=== PATIENT | male | born 1950 | race African-American/Black ===

== ENCOUNTER 2018-03-22 19:30 | Outpatient (CLI) | payer MEDICARE | END 2018-03-22 19:31 | disposition home or self-care (01) | LOC: SLEEPLAB 19:30 | PROVIDERS: ATTEND Internal Medicine | DX: G47.33 Obstructive sleep apnea (adult) (pediatric) (principal) | CPT/HCPCS: 95811 ==

== ENCOUNTER 2018-10-06 09:57 | Outpatient (CLI) | payer MEDICARE ==
--- NOTE | 2018-10-06 11:38 | RAD ---
LUMBAR SPINE SERIES 3 VIEWS: Date: 10/06/18 HISTORY: Low back pain. FINDINGS: Vertebral bodies are normal in height. Degenerative osteophytes are seen along the course of the spin e. There is mild disc narrowing at L4-5, more pronounced disc narrowing at L5-S1. Pedicles are intact . IMPRESSION: Moderate arthritic changes of the lower lumbar spine. POS: [facility]
--- NOTE | 2018-10-06 11:41 | RAD ---
LEFT KNEE 4 VIEWS: Date: 10/06/18 HISTORY: Knee pain. FINDINGS: There are mild arthritic changes of the knee. There is degenerative spur formation in the mediolatera l and patellofemoral compartments. No acute changes. IMPRESSION: Mild arthritic changes of the knee. POS: [facility]
--- NOTE | 2018-10-06 11:45 | RAD ---
RIGHT KNEE 4 VIEWS: Date: 10/06/18 HISTORY: Knee pain. FINDINGS: There are mild to moderate arthritic changes of the knee. Spur formation of the medial and lateral co mpartments, and some mild degenerative changes of the patellofemoral joint space. No joint effusion. Vascular calcifications are seen. IMPRESSION: Mild to moderate arthritic change of the right knee. POS: [facility]
== END 2018-10-06 09:58 | disposition home or self-care (01) ==
LOC: RAD-FRANK 09:57
PROVIDERS: ATTEND Internal Medicine
DX: M17.0 Bilateral primary osteoarthritis of knee (principal); M54.5 Low back pain; G89.29 Other chronic pain; M46.96 Unspecified inflammatory spondylopathy, lumbar region
CPT/HCPCS: 72100

== ENCOUNTER 2018-11-09 10:23 | Outpatient (CLI) | payer MEDICARE ==
--- NOTE | 2018-11-09 10:34 | RAD ---
XR Wrist 3 Rt View STANDARD HISTORY: Right wrist pain FINDINGS: No fracture or dislocation is identified. Vascular calcifications are present.
--- NOTE | 2018-11-09 10:35 | RAD ---
XR Wrist 3 Lt View STANDARD HISTORY: Left wrist pain FINDINGS: No fracture or dislocation is identified.Vascular calcifications are present.
== END 2018-11-09 10:24 | disposition home or self-care (01) ==
LOC: RAD-FRANK 10:23
PROVIDERS: ATTEND Internal Medicine
DX: S69.90XA Unspecified injury of unspecified wrist, hand and finger(s), initial encounter (principal)

== ENCOUNTER 2018-12-30 13:45 | Outpatient (CLI) | payer MEDICARE ==
--- NOTE | 2018-12-30 15:36 | RAD ---
LEFT WRIST: 12/30/18 Three views. INDICATIONS: Wrist pain. Comparison made to a recent left wrist exam of 11/09/18. Mild narrowing of the radiocarpal joint. Mild DJD at the first carpometacarpal joint. The carpals joseph ear normally aligned. No fracture or acute abnormality. No interval change from the recent exam. Rosina rial calcification noted. IMPRESSION: There are mild degenerative changes noted in the carpals. No fracture or acute finding. No interval c hange from recent exam. POS: [facility]
== END 2018-12-30 13:46 | disposition home or self-care (01) ==
LOC: RAD-FRANK 13:45
PROVIDERS: ATTEND Internal Medicine
DX: M25.532 Pain in left wrist (principal); M18.12 Unilateral primary osteoarthritis of first carpometacarpal joint, left hand

== ENCOUNTER 2019-05-19 08:53 | Outpatient (CLI) | payer MEDICARE ==
--- NOTE | 2019-05-19 11:11 | RAD ---
RIGHT KNEE 4 VIEWS: HISTORY: Right knee pain. FINDINGS/IMPRESSION: Moderate degenerative changes are present. No fracture, dislocation, or bony destruction is identifi ed. No joint effusion is present. POS: [facility]
--- NOTE | 2019-05-19 11:11 | RAD ---
LEFT KNEE 4 VIEWS: Date: 05/19/2019 HISTORY: Left knee pain. FINDINGS/IMPRESSION: Comparison made with exam of 10/06/2018. Mild degenerative changes are again seen. No acute fracture, dislocation, or bony destruction is iden tified. POS: [facility]
--- NOTE | 2019-05-19 11:12 | RAD ---
LUMBAR SPINE 2 VIEWS: Date: 05/19/2019 HISTORY: Low back pain going down both legs, worse on the left. FINDINGS: Comparison with 10/06/2018. No fracture, subluxation, or bony destruction seen. Moderate degenerative changes are again noted. IMPRESSION: Stable exam. No acute process. POS: [facility]
== END 2019-05-19 08:54 | disposition home or self-care (01) ==
LOC: BICRAD 08:53
PROVIDERS: ATTEND Internal Medicine
DX: M25.561 Pain in right knee (principal); M25.562 Pain in left knee; M54.5 Low back pain; M17.0 Bilateral primary osteoarthritis of knee
CPT/HCPCS: 72100

== ENCOUNTER 2019-12-05 08:50 | Outpatient (CLI) | payer MEDICARE ==
--- NOTE | 2019-12-05 09:38 | RAD ---
EXAM: Chest 2 views: HISTORY: Shortness of breath COMPARISON: None. FINDINGS: There is a normal-sized cardiomediastinal silhouette. Scarring is seen in the left lung base. There is no evidence of consolidation, mass, or pleural effusion. No acute osseous abnormality. IMPRESSION: No evidence of acute cardiopulmonary disease
== END 2019-12-05 08:51 | disposition home or self-care (01) ==
LOC: RAD-FRANK 08:50
PROVIDERS: ATTEND Internal Medicine Cardiovascular Disease
DX: R06.02 Shortness of breath (principal)
CPT/HCPCS: 71046; 80053; 80061; 83880; 84443; 85025

== ENCOUNTER 2020-01-10 09:37 | Outpatient (CLI) | payer MEDICARE ==
--- NOTE | 2020-01-10 10:20 | RAD ---
XR Chest Pa Lat STANDARD HISTORY: Dyspnea COMPARISON: 12/05/2019 FINDINGS: The heart size is normal. The aorta is tortuous. The lungs are well expanded without focal areas of consolidation, pneumothorax or pleural effusions. This mild interval prominence of interstitial markings since last exam. Mild scarring of the left dora g base is again seen.
== END 2020-01-10 09:38 | disposition home or self-care (01) ==
LOC: BICRAD 09:37
PROVIDERS: ATTEND Internal Medicine Critical Care Medicine
DX: R06.00 Dyspnea, unspecified (principal)
CPT/HCPCS: 71046

== ENCOUNTER 2020-02-23 13:25 | Inpatient (IN) | payer MEDICARE ==
[2020-02-23 14:06] LABS: #Eosinphils 0.1 thou/uL (0.0-0.7); #Lymphocytes 1.3 thou/uL (1.20-3.40); #Monocytes 0.6 thou/uL (0.11-0.59); #Neutrophils 9.3 thou/uL (1.40-6.50); %Basophils 0.3 % (0.0-1.0); %Eosinophils 0.7 % (0.0-10.0); %Lymphocytes 11.7 % (21.0-51.0); %Neutrophils 82.4 % (42.0-75.0); Hemoglobin 10.9 g/dL (14.0-18.0); Mean Corpuscular HGB CONC 30.4 g/dL (32.0-36.0); Mean Corpuscular Hemoglobin 26.4 pg (27.0-31.0); Mean Corpuscular Volume 86.8 fL (78.0-98.0); Mean Platelet Volume 9.7 fL (7.4-10.4); Platelet Count 143 thou/uL (130-400); RBC Distribution Width 13.1 % (11.5-14.5); Red Blood Cell (RBC) Count 4.14 mill/uL (4.70-6.10); White Blood Cell (WBC) Count 11.3 thou/uL (4.8-10.8)
--- NOTE | 2020-02-23 14:14 | RAD ---
PORTABLE CHEST 1 VIEW: Date: 02/23/2020 HISTORY: Shortness of breath. Hypotension. COMPARISON: 01/10/2020. FINDINGS/IMPRESSION: The heart is enlarged. There is mild pulmonary vascular congestion. No lobar consolidation, pneumotho races, or large effusions are seen. POS: [facility]
[2020-02-23 14:30] LABS: ALT (SGPT) 14 U/L (8-55); AST (SGOT) 10 U/L (5-34); Albumin 3.6 g/dL (3.4-4.8); Alkaline Phosphatase 77 U/L (40-110); Anion Gap 15 mmol/L (10-20); BUN (Urea Nitrogen) 18 mg/dL (8.4-25.7); Bilirubin, Total 0.4 mg/dL (0.2-1.2); Calc. Creatinine Clearance 0 mL/min (70-130); Calcium 8.2 mg/dL (7.8-10.44); Carbon Dioxide 22 mmol/L (23-31); Chloride 103 mmol/L (98-107); Globulin 3.5 g/dL (2.4-3.5); Glucose 242 mg/dL (80-115); Potassium 3.8 mmol/L (3.5-5.1); Protein, Total 7.1 g/dL (5.8-8.1); Sodium 136 mmol/L (136-145)
[2020-02-23 15:45] LABS: CKMB 1.2 ng/mL (0-6.6)
--- NOTE | 2020-02-23 17:15 | PDOC.HHP ---
Hospitalist HPI - History of Present Illness SOB History of Present Illness: PCP: [facility] The patient is a 69-year-old male with a past medical history significant for SAURAV (CPAP), HTN, DM 2, HLD and anxiety that presents to the emergency department via EMS for the above complaint. The patient reports that he has been having episodic dyspnea on exertion for the past several days. Today, while walking in the yard, his dyspnea became more severe. When he sat down it resolved. He reports some associated lightheadedness. He denies vertigo. He denies any chest pain, heart palpitations or swelling to his lower extremities. He denies any history of COPD/asthma, DVT/PE or cough. No fever or chills. He denies any abdominal pain, nausea, vomiting, hematochezia/melena. He has no urinary sympto ms. Denies any fever or chills. He tested negative for Covid 3 weeks ago. EMS was called and the patient was taken to the hospital for further evaluation. ED Course: VITAL SIGNS Aarti Feb 23, 2020 13:33 [place] [place] BP: 114/64, MAP: 80, Pulse: 52, Resp: 19, Temp: 98.2 (Oral), Pain: 0, O2 sat: 96 on (Room Air), Time: 02/23/2020 13:33. VITAL SIGNS Aarti Feb 23, 2020 14:59 [place] BP: 115/63, MAP: 80, Pulse: 59, Resp: 18, Pain: 0, O2 sat: 97 on (Room Air), Time: 02/23/2020 14:59 Medications: None Hospitalist ROS - Review of Systems All other systems reviewed; all pertinent +/- noted in HPI/Subj - Medication Medications: 1. Metoprolol unknown dosing 2. Hydralazine unknown dosing 3. Lasix unknown dosing 4. Metformin unknown dosing 5. Glipizide unknown dosing 6. Amitriptyline unknown dosing Allergies: lisinopril (bulk), Shellfish Containing Products, Sulfa (Sulfonamide Antibiotics) Hospitalist History - Past Medical History Source: patient, RN notes reviewed Cardiac: reports: HTN, Hyperlipidemia Pulmonary: reports: Other (Obstructive sleep apnea, CPAP at home) Psych: reports: Anxiety Endocrine: reports: Diabetes (Type II [id number]) - Past Surgical History Past Surgical History: reports: Cholecystectomy, Other (Bilateral knee surgery, neck surgery, herniated disc) - Family History Family History: reports: cardiac disorder (Mother) - Social History Smoking Status: Never smoker Alcohol: reports: None Drugs: reports: none Living Situation: With Family Activity level: uses cane/walker - Exam General Appearance: NAD, awake alert. negative: ill appearing Eye: anicteric sclera ENT: normocephalic atraumatic Neck: supple, symmetric Heart: RRR, no murmur, no gallops, no rubs, normal peripheral pulses Respiratory: CTAB, no wheezes, no rales, no ronchi, normal chest expansion, no tachypnea Gastrointestinal: soft, non-tender, no guarding, no rigidity. negative: non- distended Extremities: no cyanosis, no edema Skin: no rashes Neurological: no focal deficits Musculoskeletal: normal tone, normal strength Psychiatric: normal affect, A&O x 3 Hospitalist Results - Labs Result Diagrams: 02/23/20 13:53 02/23/20 13:53 Lab results: WBC 11.3 thou/uL (4.8-10.8) H 02/23/20 13:53 Hgb 10.9 g/dL (14.0-18.0) L 02/23/20 13:53 Hct 35.9 % (42.0-52.0) L 02/23/20 13:53 MCV 86.8 fL (78.0-98.0) 02/23/20 13:53 Plt Count 143 thou/uL (130-400) 02/23/20 13:53 Neutrophils % 82.4 % (42.0-75.0) H 02/23/20 13:53 Sodium 136 mmol/L (136-145) 02/23/20 13:53 Potassium 3.8 mmol/L (3.5-5.1) 02/23/20 13:53 Chloride 103 mmol/L (98-107) 02/23/20 13:53 Carbon Dioxide 22 mmol/L (23-31) L 02/23/20 13:53 BUN 18 mg/dL (8.4-25.7) 02/23/20 13:53 Creatinine 1.04 mg/dL (0.7-1.3) 02/23/20 13:53 Glucose 242 mg/dL (80-115) H 02/23/20 13:53 Calcium 8.2 mg/dL (7.8-10.44) 02/23/20 13:53 Total Bilirubin 0.4 mg/dL (0.2-1.2) 02/23/20 13:53 AST 10 U/L (5-34) 02/23/20 13:53 ALT 14 U/L (8-55) 02/23/20 13:53 Alkaline Phosphatase 77 U/L (40-110) 02/23/20 13:53 CK-MB (CK-2) 1.2 ng/mL (0-6.6) 02/23/20 13:53 Troponin I 0.034 ng/mL (< 0.028) H 02/23/20 13:53 Serum Total Protein 7.1 g/dL (5.8-8.1) 02/23/20 13:53 Albumin 3.6 g/dL (3.4-4.8) 02/23/20 13:53 - EKG Interpretation EK lead EKG shows, sinus bradycardia, Rate (beats per minute): 50, with no ectopics, Conduction with, incomplete right bundle branch block, ST segments normal, T waves normal, [place] normal, Clinical impression:, non-specific EKG - Radiology Interpretation Chest x-ray Status: report reviewed by me Additional Comment: FINDINGS/IMPRESSION: The heart is enlarged. There is mild pulmonary vascular congestion. No lobar consolidation, pneumotho races, or large effusions are seen. Hospitalist H&P A/P - Problem (1) Symptomatic bradycardia Code(s): R00.1 - BRADYCARDIA, UNSPECIFIED Status: Acute (2) Dyspnea on exertion Code(s): R06.00 - DYSPNEA, UNSPECIFIED Status: Acute (3) Hypertension Code(s): I10 - ESSENTIAL (PRIMARY) HYPERTENSION Status: Chronic (4) DM2 (diabetes mellitus, type 2) Status: Chronic (5) HLD (hyperlipidemia) Code(s): E78.5 - HYPERLIPIDEMIA, UNSPECIFIED Status: Chronic (6) Anxiety Code(s): F41.9 - ANXIETY DISORDER, UNSPECIFIED Status: Chronic - Plan Plan: 69/M with PMH HTN, HLD, DM2, SAURAV presents for dyspnea on exertion. Admit to telemetry floor, observation status. Expected length of stay less than 2 midnights. Presented bradycardic (HR 52), NL BP, RR, SPO2, afebrile. EKG sinus bradycardia incomplete right bundle branch block, no ST elevations. CXR enlarged heart, mild pulmonary congestion. Troponin 0.034, CK-MB 1.2 BG 242 #Symptomatic bradycardia Story is concerning. Reports recent [employer]/echo followed by Dr. Obrien. Unable to locate in [place]. Upon assessment, HR 70s. Heart score 6. [place] PE score 0. Trend troponins, check BNP, TSH, mag level. Give aspirin. Check orthostatic vitals. Consult cardiology, Dr. Obrien. #Dyspnea on exertion Likely related to problem #1. Plan per above. #Hypertension Takes metoprolol, hydralazine, Lasix at home. We will restart home medications as appropriate. #DM2 [id number]. Takes Metformin and glipizide at home. We will hold home antihyperglycemic medications. Start moderate ISS. Accu-Cheks AC at bedtime. #HLD Check FLP. Restart home dose simvastatin. #Anxiety Denies SI/HI. Takes amitriptyline at night. We will restart home dose of amitriptyline. SCDs for DVT prophylaxis. Pepcid for GI prophylaxis. Full code. Discussed case with Dr. Stoddard.
[2020-02-23] MEDS ORDERED: HumaLOG 300 UNITS/3 ML VIAL SC PRN (17:43)
[2020-02-23] MEDS ORDERED: Dextrose 5% in Water 1,000 ML IV PRN (17:43)
[2020-02-23] MEDS ORDERED: Dextrose 50% Abboject 50 ML SYRINGE SLOW IVP PRN (17:43)
[2020-02-23] MEDS ORDERED: Ondansetron ODT 4 MG TAB PO PRN (17:44)
[2020-02-23] MEDS ORDERED: Ondansetron PF 4 MG/2 ML Vial IVP PRN (17:44)
[2020-02-23] MEDS ORDERED: Acetaminophen 325 MG TAB PO PRN (17:44)
[2020-02-23] MEDS ORDERED: Bisacodyl 5 MG TAB PO PRN (17:44)
[2020-02-23] MEDS ORDERED: Senokot S 8.6-50 MG TAB PO PRN (17:44)
[2020-02-23 17:50] LABS: Troponin I 0.028 ng/mL (< 0.028)
[2020-02-23] MEDS ORDERED: Aspirin 325 MG TAB PO SCH (18:00)
[2020-02-23 18:38] VITALS: BMI 38.7
[2020-02-23 20:18] LABS: Troponin I 0.043 ng/mL (< 0.028)
[2020-02-23] MEDS: Famotidine 20 MG TAB PO SCH (21:04)
[2020-02-24 04:28] LABS: #Basophils 0.1 thou/uL (0.0-0.2); #Eosinphils 0.1 thou/uL (0.0-0.7); #Lymphocytes 2.3 thou/uL (1.20-3.40); #Monocytes 0.7 thou/uL (0.11-0.59); #Neutrophils 5.4 thou/uL (1.40-6.50); %Basophils 0.8 % (0.0-1.0); %Eosinophils 1.2 % (0.0-10.0); %Lymphocytes 26.6 % (21.0-51.0); %Monocytes 8.4 % (0.0-10.0); Hemoglobin 10.5 g/dL (14.0-18.0); Mean Corpuscular HGB CONC 30.6 g/dL (32.0-36.0); Mean Corpuscular Hemoglobin 26.9 pg (27.0-31.0); Mean Platelet Volume 9.4 fL (7.4-10.4); Platelet Count 128 thou/uL (130-400); RBC Distribution Width 13.1 % (11.5-14.5); Red Blood Cell (RBC) Count 3.91 mill/uL (4.70-6.10); White Blood Cell (WBC) Count 8.6 thou/uL (4.8-10.8)
[2020-02-24 04:50] LABS: Anion Gap 12 mmol/L (10-20); BUN (Urea Nitrogen) 15 mg/dL (8.4-25.7); Calc. Creatinine Clearance 171 mL/min (70-130); Calcium 8.4 mg/dL (7.8-10.44); Carbon Dioxide 29 mmol/L (23-31); Cardiac Risk 2.2 (Less than 4.5); Chloride 102 mmol/L (98-107); Cholesterol 97 mg/dl (< 200 Desired); HDL Cholesterol 45 mg/dL (>60 Neg Risk); LDL Cholesterol, Calculated 38 mg/dL; Potassium 3.5 mmol/L (3.5-5.1); Sodium 139 mmol/L (136-145); Triglycerides 68 mg/dL (Less than 150)
[2020-02-24 04:58] LABS: Glucose 54 mg/dL (80-115)
[2020-02-24] MEDS: Famotidine 20 MG TAB PO SCH ×2 (08:41→21:58)
[2020-02-24] MEDS: Aspirin Chewable 81 MG TAB PO SCH (08:41)
[2020-02-24] MEDS ORDERED: Magnesium Sulfate 4 GM in Sodium Chloride 0.9% 250 ML 250 ML IVPB SCH (10:15)
[2020-02-24] MEDS ORDERED: D5 1/2 NS w/20 mEq KCL 1,000 ML IV SCH ×2 (11:30→15:32)
[2020-02-24] MEDS: Potassium Chloride 20 MEQ TAB PO SCH ×2 (12:32→16:47)
[2020-02-24] MEDS ORDERED: hydrALAZINE 25 MG TAB PO SCH (16:15)
--- NOTE | 2020-02-24 16:22 | CON ---
DATE OF CONSULTATION: REASON FOR CONSULTATION: Shortness of breath and bradycardia. PRIMARY LINING IRONER: Jos Obrien MD HISTORY OF PRESENT ILLNESS: Mr. Cullen is a 69-year-old gentleman, who has been seen and evaluated by Dr. Jos Obrien in the past. He has complaint of shortness of breath noted in the past. He has a history of diastolic dysfunction, grade 2. He has undergone a noninvasive stress study within the last several months. It was felt to be negative with normal LVEF. He states over the last 2 to 3 weeks, he has had increased shortness of breath. Blood pressure has been elevated. Heart rate has been low. They found his heart rate to be in the 40s. Recommend he proceed to the emergency room. No chest pain or pressure noted. HOME MEDICATIONS: Include 1. Metformin. 2. Glipizide. 3. Metoprolol 100 mg one p.o. b.i.d. 4. Diltiazem 60 mg t.i.d. 5. Simvastatin 80 daily. 6. Metoclopramide. 7. Amitriptyline. 8. Tramadol. 9. Pantoprazole. 10. Ondansetron. 11. Hydralazine. 12. Lasix. 13. Doxazosin. 14. Finasteride. PAST MEDICAL HISTORY: Hypertension, diabetes mellitus, grade 2 diastolic dysfunction, cholecystectomy, and knee surgery. SOCIAL HISTORY: No current tobacco or alcohol use. ALLERGIES: 1. BACTRIM. 2. IODINE. 3. LISINOPRIL. REVIEW OF SYSTEMS: A 10-point review of systems is reviewed and as above, otherwise negative. PHYSICAL EXAMINATION: GENERAL: Patient is a pleasant gentleman, who is in no acute distress. The patient appears their stated age. VITAL SIGNS: Blood pressure 177/91, pulse 88, temperature 98.7. NEUROLOGIC: The patient is alert and oriented x3 with no focal neurologic deficits. HEENT: Sclerae without icterus. Mouth has moist mucous membranes with normal pallor. NECK: No JVD. Carotid upstroke brisk. No bruits bilaterally. LUNGS: Crackles noted bilaterally. BACK: No scoliosis or kyphosis. CARDIAC: Regular rate and rhythm with normal S1 and S2. No S3 or S4 noted. No significant rubs, murmurs, thrills, or gallops noted throughout the precordium. PMI is not displaced. There is no parasternal heave. ABDOMEN: Soft, nontender, nondistended. No peritoneal signs present. No hepatosplenomegaly. No abnormal striae. EXTREMITIES: 2+ femoral and 2+ dorsalis pedis pulses. No cyanosis, clubbing, or edema. SKIN: No gross abnormalities. PERTINENT LABORATORY DATA: Include a creatinine of 0.79. Initial glucose 54, magnesium 1.5. Platelet count 128, hemoglobin 10.5. BNP of 126. IMPRESSION: 1. Shortness of breath. 2. Bradycardia. 3. Diastolic dysfunction. RECOMMENDATIONS: Mr. Cullen has had a full cardiac workup in the past. He does have a grade 2 diastolic dysfunction. Blood pressure is markedly elevated in the 170s to 180s. At this point, I agree with discontinuing Cardizem in addition to metoprolol. We would like to see his heart rate increased. I will add Norvasc 5 mg one p.o. now and then q.a.m. We will also add hydrochlorothiazide 25 mg one p.o. q.a.m. We will give one dose of Lasix now given the mild crackles noted bilaterally likely from diastolic dysfunction. At this point, there is no indication to proceed with a noninvasive stress study given recent stress study that was negative for ischemia. Job ID: [id number]
[2020-02-24] MEDS ORDERED: Furosemide 40 MG/4 ML VIAL SLOW IVP SCH (16:30)
--- NOTE | 2020-02-24 20:48 | PDOC.HOSPP ---
- Subjective Encounter Date: 02/24/20 Encounter Time: 18:30 Subjective: Patient seen and examined for near syncope probably due to symptomatic bradycardia. Denies any chest pain or shortness of breath. No new focal deficit. - Objective Vital Signs & Weight: Vital Signs (12 hours) Temp Pulse Resp BP BP BP BP 02/24/20 17:45 90 16 163/84 H 154/84 H 167/83 H 02/24/20 16:46 82 02/24/20 15:56 82 177/89 H 02/24/20 15:54 82 173/89 H 02/24/20 15:22 98.7 F 88 16 177/91 H 02/24/20 11:26 98.2 F 88 16 170/87 H Pulse Ox 02/24/20 17:45 98 02/24/20 16:46 02/24/20 15:56 02/24/20 15:54 02/24/20 15:22 98 02/24/20 11:26 98 Weight Weight 302 lb 4 oz I&O: 02/23/20 02/24/20 02/25/20 06:59 06:59 06:59 Intake Total 920 Output Total 3175 Balance -2255 Result Diagrams: 02/24/20 04:10 02/25/20 04:10 Additional Labs: Accuchecks 02/24/20 02/24/20 02/24/20 16:31 10:44 07:37 POC Glucose 93 86 126 H 02/24/20 02/24/20 02/23/20 06:16 05:39 20:42 POC Glucose 72 49 L* 91 Abnormal Lab Results - Last 48 hrs 02/23/20 13:53: WBC 11.3 H, RBC 4.14 L, Hgb 10.9 L, Hct 35.9 L, MCH 26.4 L, MCHC 30.4 L, Neutrophils % 82.4 H, Lymphocytes % 11.7 L, Neutrophils # 9.3 H, Monocytes # 0.6 H 02/23/20 13:53: Carbon Dioxide 22 L, Albumin/Globulin Ratio 1.0 L 02/23/20 13:53: Troponin I 0.034 H 02/23/20 13:53: Magnesium 1.5 L 02/23/20 13:53: B-Natriuretic Peptide 126.6 H 12/17/20 19:33: Troponin I 0.043 H 02/24/20 04:00: Magnesium 1.5 L 02/24/20 04:10: RBC 3.91 L, Hgb 10.5 L, Hct 34.4 L, MCH 26.9 L, MCHC 30.6 L, Plt Count 128 L, Monocytes # 0.7 H Radiology Reviewed by me: Yes (Chest x-rayno infiltrate) EKG Reviewed by me: Yes (Sinus rhythm on telemetry) Hospitalist ROS - Review of Systems Cardiovascular: denies: chest pain, palpitations, orthopnea, paroxysmal noc. dyspnea, edema, light headedness, other Gastrointestinal: denies: nausea, vomiting, abdominal pain, diarrhea, constipation, melena, hematochezia, other - Medication Medications: Active Medications Generic Name Dose Route Start Last Admin Trade Name Freq PRN Reason Stop Dose Admin Aspirin 81 mg 02/24/20 09:00 02/24/20 08:41 Aspirin Chewable 81 Mg Tab PO 81 mg DAILY TERRY Administration Dextrose/Water 25 gm 02/23/20 17:43 02/24/20 06:27 Dextrose 50% Abboject 50 Ml Syringe SLOW IVP 25 gm PRN PRN Administration Hypoglycemia Famotidine 20 mg 02/23/20 21:00 02/24/20 08:41 Famotidine 20 Mg Tab PO 20 mg BID TERRY Administration Potassium Chloride 20 meq 02/24/20 12:00 02/24/20 16:47 Potassium Chloride 20 Meq Tab PO 02/25/20 12:01 20 meq TID-WM TERRY Administration - Exam General Appearance: NAD Neck: supple, no JVD Heart: no gallops, no rubs Respiratory: no wheezes, no rales Gastrointestinal: non-tender, non-distended, normal bowel sounds Extremities: no cyanosis, no clubbing Skin: normal turgor Neurological: no new deficit Hosp A/P - Plan DVT proph w/SCDs Shortness of breath probably due to symptomatic bradycardia Acute on chronic diastolic heart failure Diabetes mellitus type 2 with hypoglycemia Hypomagnesemia/hypokalemia Hypertension Hyperlipidemia GERD Chronic pain syndrome Benign prostatic hypertrophy Obesity with a BMI 38.8 CKD stage II Obstructive sleep apnea on CPAP Plan: Received 1 dose of IV Lasix earlier. Beta-blockers and Cardizem have been discontinued. Orthostatic vitals negative. Patient has been started on amlodipine. Hypoglycemia resolved. Replace magnesium and potassium. Restart doxazosin, hydralazine and finasteride. Cardiology input appreciated. Continue other medications as above. Recheck labs in a.m.
[2020-02-24] MEDS ORDERED: Atorvastatin Calcium 40 MG TAB PO SCH (21:00)
[2020-02-24] MEDS: hydrALAZINE 25 MG TAB PO SCH (21:48)
[2020-02-24] MEDS: Doxazosin Mesylate 4 MG TAB PO SCH (21:49)
[2020-02-25 05:00] LABS: Anion Gap 14 mmol/L (10-20); BUN (Urea Nitrogen) 12 mg/dL (8.4-25.7); Calc. Creatinine Clearance 163 mL/min (70-130); Calcium 8.4 mg/dL (7.8-10.44); Carbon Dioxide 27 mmol/L (23-31); Chloride 101 mmol/L (98-107); Glucose 114 mg/dL (80-115); Magnesium 2.1 mg/dL (1.6-2.6); Potassium 3.8 mmol/L (3.5-5.1); Sodium 138 mmol/L (136-145)
[2020-02-25] MEDS: HumaLOG 300 UNITS/3 ML VIAL SC PRN ×2 (07:50→20:55)
[2020-02-25] MEDS: hydrALAZINE 25 MG TAB PO SCH ×2 (09:33→20:47)
[2020-02-25] MEDS: Potassium Chloride 20 MEQ TAB PO SCH ×2 (09:33→14:02)
[2020-02-25] MEDS: Aspirin Chewable 81 MG TAB PO SCH (09:34)
[2020-02-25] MEDS: Hydrochlorothiazide 25 MG TAB PO SCH (09:34)
[2020-02-25] MEDS: Amlodipine 5 MG TAB PO SCH (09:34)
[2020-02-25] MEDS: Finasteride 5 MG TAB PO SCH (09:34)
[2020-02-25] MEDS ORDERED: Carvedilol 6.25 MG TAB PO SCH (11:45)
[2020-02-25] MEDS ORDERED: Furosemide 20 MG/2 ML VIAL SLOW IVP SCH ×2 (11:45→15:15)
--- NOTE | 2020-02-25 12:02 | PDOC.HOSPP ---
- Subjective Encounter Date: 02/25/20 Encounter Time: 11:00 Subjective: Patient seen and examined for symptomatic bradycardia with shortness of breath. He was less dyspneic on exertion this morning on ambulation. Had mild chest discomfort when he came back to the room after cardiac rehab. Denies any palpitations or syncope. - Objective Vital Signs & Weight: Vital Signs (12 hours) Temp Pulse Resp BP Pulse Ox 02/25/20 07:30 97 02/25/20 07:29 98.3 F 85 18 159/86 H 97 02/25/20 03:18 97.4 F L 77 20 143/74 H 93 L Weight Weight 302 lb 4 oz I&O: 02/24/20 02/25/20 02/26/20 06:59 06:59 06:59 Intake Total 1320 Output Total 4425 Balance -3105 Result Diagrams: 02/24/20 04:10 02/25/20 04:10 Additional Labs: Accuchecks 02/25/20 02/25/20 02/24/20 11:00 05:56 20:42 POC Glucose 135 H 158 H 128 H 02/24/20 16:31 POC Glucose 93 Abnormal Lab Results - Last 48 hrs 02/23/20 13:53: WBC 11.3 H, RBC 4.14 L, Hgb 10.9 L, Hct 35.9 L, MCH 26.4 L, MCHC 30.4 L, Neutrophils % 82.4 H, Lymphocytes % 11.7 L, Neutrophils # 9.3 H, Monocytes # 0.6 H 02/23/20 13:53: Carbon Dioxide 22 L, Albumin/Globulin Ratio 1.0 L 02/23/20 13:53: Troponin I 0.034 H 02/23/20 13:53: Magnesium 1.5 L 02/23/20 13:53: B-Natriuretic Peptide 126.6 H 02/23/20 19:33: Troponin I 0.043 H 02/24/20 04:00: Magnesium 1.5 L 02/24/20 04:10: RBC 3.91 L, Hgb 10.5 L, Hct 34.4 L, MCH 26.9 L, MCHC 30.6 L, Plt Count 128 L, Monocytes # 0.7 H EKG Reviewed by me: Yes (Sinus rhythm on telemetry) Hospitalist ROS - Review of Systems Respiratory: reports: SOB with excertion. denies: cough, dry, shortness of breath, hemoptysis, pleuritic pain, sputum, wheezing, other Gastrointestinal: denies: nausea, vomiting, abdominal pain, diarrhea, constipation, melena, hematochezia, other - Medication Medications: Active Medications Generic Name Dose Route Start Last Admin Trade Name Freq PRN Reason Stop Dose Admin Amlodipine Besylate 5 mg 02/25/20 09:00 02/25/20 09:34 Amlodipine 5 Mg Tab PO 5 mg DAILY TERRY Administration Aspirin 81 mg 02/24/20 09:00 02/25/20 09:34 Aspirin Chewable 81 Mg Tab PO 81 mg DAILY TERRY Administration Dextrose/Water 25 gm 02/23/20 17:43 02/24/20 06:27 Dextrose 50% Abboject 50 Ml Syringe SLOW IVP 25 gm PRN PRN Administration Hypoglycemia Doxazosin Mesylate 8 mg 02/24/20 21:00 02/24/20 21:49 Doxazosin Mesylate 4 Mg Tab PO 8 mg HS TERRY Administration Finasteride 5 mg 02/25/20 09:00 02/25/20 09:34 Finasteride 5 Mg Tab PO 5 mg DAILY TERRY Administration Hydralazine HCl 100 mg 02/24/20 21:00 02/25/20 09:33 Hydralazine 25 Mg Tab PO 100 mg BID TERRY Administration Hydrochlorothiazide 25 mg 02/25/20 09:00 02/25/20 09:34 Hydrochlorothiazide 25 Mg Tab PO 25 mg DAILY TERRY Administration Insulin Human Lispro 0 units 02/24/20 09:06 02/25/20 07:50 Humalog 300 Units/3 Ml Vial SC 2 unit .MILD SLIDING SCALE PRN Administration Mild Correctional Scale Pantoprazole Sodium 40 mg 02/24/20 21:00 02/24/20 21:49 Pantoprazole 40 Mg Tab PO 40 mg HS TERRY Administration - Exam General Appearance: NAD Neck: supple, no JVD Heart: RRR, no gallops Respiratory: no wheezes, no rales Gastrointestinal: soft, non-tender, normal bowel sounds Extremities: no cyanosis, 1+ LE edema Neurological: no new deficit Psychiatric: normal affect, A&O x 3 Hosp A/P - Plan DVT proph w/SCDs Shortness of breath probably due to symptomatic bradycardia Acute on chronic hronic diastolic heart failure Atypical chest pain Diabetes mellitus type 2 with hypoglycemia Hypomagnesemia/hypokalemia Hypertension Hyperlipidemia GERD Chronic pain syndrome Benign prostatic hypertrophy Obesity with a BMI 38.8 CKD stage II Obstructive sleep apnea on CPAP Plan: Will administer another dose of IV Lasix today. Continue hydrochlorothiazide. Replace potassium. Start carvedilol at 6.25 mg twice dailyCase discussed with cardiology. Patient had a recent work-up as outpatient with a negative stress test. Diabetic medications on hold due to hypoglycemia. Recheck labs in a.m. Continue other medications as above.
--- NOTE | 2020-02-25 13:23 | PDOC.CPN ---
- Subjective Date: 02/25/20 Time: 10:30 Interval history: Rhythm stable. BP elevated and Norvasc added. - Review of Systems General: denies: fever/chills, weight/appetite/sleep changes, night sweats, fatigue Respiratory: denies: cough, congestion, shortness of breath, exercise intolerance Cardiovascular: denies: chest pain, palpitation, edema, paroxysmal nocturnal dyspnea, orthopnea Gastrointestinal: denies: nausea, vomiting, diarrhea, constipation, abd pain, GI bleeding Musculoskeletal: denies: pain, tenderness, stiffness, swelling, arthritis/arthra lgias Neurological: denies: numbness, syncope, seizure, weakness - Objective Allergies/Adverse Reactions: Allergies Allergy/AdvReac Type Severity Reaction Status Date / Time Iodine and Iodide Containing Allergy Verified 02/23/20 20:36 Produc lisinopril Allergy Verified 02/23/20 20:36 shellfish derived Allergy Verified 02/23/20 20:36 Sulfa (Sulfonamide Allergy Verified 02/23/20 20:36 Antibiotics) Visit Medications: Current Medications Acetaminophen (Acetaminophen 325 Mg Tab) 650 mg PO Q4H PRN PRN Reason: Headache/Fever/Mild Pain (1-3) Amlodipine Besylate (Amlodipine 5 Mg Tab) 5 mg PO DAILY [facility] Last Admin: 02/25/20 09:34 Dose: 5 mg Documented by: Aspirin (Aspirin Chewable 81 Mg Tab) 81 mg PO DAILY [facility] Last Admin: 02/25/20 09:34 Dose: 81 mg Documented by: Bisacodyl (Bisacodyl 5 Mg Tab) 10 mg PO DAILYPRN PRN PRN Reason: Constipation Carvedilol (Carvedilol 6.25 Mg Tab) 6.25 mg PO BID-[facility] Carvedilol (Carvedilol 6.25 Mg Tab) 6.25 mg PO NOW [facility] Stop: 02/25/20 13:45 Dextrose/Water (Dextrose 50% Abboject 50 Ml Syringe) 25 gm SLOW IVP PRN PRN PRN Reason: Hypoglycemia Last Admin: 02/24/20 06:27 Dose: 25 gm Documented by: Doxazosin Mesylate (Doxazosin Mesylate 4 Mg Tab) 8 mg PO [facility] Last Admin: 02/24/20 21:49 Dose: 8 mg Documented by: Finasteride (Finasteride 5 Mg Tab) 5 mg PO DAILY [facility] Last Admin: 02/25/20 09:34 Dose: 5 mg Documented by: Furosemide (Furosemide 20 Mg/2 Ml Vial) 20 mg SLOW IVP NOW [facility] Stop: 02/25/20 13:45 Glucagon (Glucagon 1 Mg/Ml Vial) 1 mg IM PRN PRN PRN Reason: Hypoglycemia Hydralazine HCl (Hydralazine 25 Mg Tab) 100 mg PO BID [facility] Last Admin: 02/25/20 09:33 Dose: 100 mg Documented by: Hydrochlorothiazide (Hydrochlorothiazide 25 Mg Tab) 25 mg PO DAILY [facility] Last Admin: 02/25/20 09:34 Dose: 25 mg Documented by: Dextrose/Water (D5w) 1,000 mls @ 0 mls/hr IV .Q0M PRN PRN Reason: Hypoglycemia Insulin Human Lispro (Humalog 300 Units/3 Ml Vial) 0 units SC .BEDTIME SLIDING SC PRN PRN Reason: Bedtime Correctional Scale Insulin Human Lispro (Humalog 300 Units/3 Ml Vial) 0 units SC .MILD SLIDING SCALE PRN PRN Reason: Mild Correctional Scale Last Admin: 02/25/20 07:50 Dose: 2 unit Documented by: Ondansetron HCl (Ondansetron Odt 4 Mg Tab) 4 mg PO Q6H PRN PRN Reason: Nausea/Vomiting Ondansetron HCl (Ondansetron Pf 4 Mg/2 Ml Vial) 4 mg IVP Q6H PRN PRN Reason: Nausea/Vomiting Pantoprazole Sodium (Pantoprazole 40 Mg Tab) 40 mg PO [facility] Last Admin: 02/24/20 21:49 Dose: 40 mg Documented by: Potassium Chloride (Potassium Chloride 10 Meq Tab) 10 meq PO BID-[facility] Senna/Docusate Sodium (Senokot S 8.6-50 Mg Tab) 2 tab PO BID PRN PRN Reason: Constipation Sodium Chloride (Flush - Normal Saline 10 Ml Syringe) 10 ml IVF PRN PRN PRN Reason: Saline Flush Tramadol HCl (Tramadol Hcl 50 Mg Tab) 50 mg PO BID PRN PRN Reason: Moderate to Severe Pain (4-10) Vital Signs & Weight: Vital Signs Temp Pulse Resp BP Pulse Ox 02/25/20 07:30 97 02/25/20 07:29 98.3 F 85 18 159/86 H 97 02/25/20 03:18 97.4 F L 77 20 143/74 H 93 L Weight 302 lb 4 oz - Physical Exam General: alert & oriented x3, appears well HEENT: mucus membranes moist Neck: supple neck Cardiac: regular rate and rhythm Lungs: clear to auscultation Neuro: grossly intact Abdomen: soft, non-tender Extremities: no edema Skin: clear - Labs Result Diagrams: 02/24/20 04:10 02/25/20 04:10 Troponin/CKMB CK-MB (CK-2) 1.2 ng/mL (0-6.6) 02/23/20 13:53 Troponin I 0.043 ng/mL (< 0.028) H 02/23/20 19:33 - Assessment/Plan Assessment/Plan: 1. Bradycardia 2. HTN 3. Acute diastolic CHF Rhythm stable off cardizem. Continue Norvasc and may need to titrate dosage. Hopefully home soon. RG 02/24 Pt seen and examined. Agree with the above BP overall better and has diuresied Still SOB and tightness in chest Contiue to diurese and mange BP If still with symptoms in the AM, recommend angio on Thursday
[2020-02-25] MEDS ORDERED: Losartan 25 MG TAB PO SCH (15:30)
[2020-02-25] MEDS: Carvedilol 6.25 MG TAB PO SCH (16:35)
[2020-02-25] MEDS: Potassium Chloride 10 MEQ TAB PO SCH (16:40)
[2020-02-25] MEDS: Doxazosin Mesylate 4 MG TAB PO SCH (20:48)
[2020-02-26 04:29] LABS: #Eosinphils 0.1 thou/uL (0.0-0.7); #Lymphocytes 1.6 thou/uL (1.20-3.40); #Monocytes 0.6 thou/uL (0.11-0.59); #Neutrophils 3.5 thou/uL (1.40-6.50); %Basophils 0.3 % (0.0-1.0); %Eosinophils 1.4 % (0.0-10.0); %Lymphocytes 27.6 % (21.0-51.0); %Monocytes 10.8 % (0.0-10.0); %Neutrophils 59.9 % (42.0-75.0); Hemoglobin 11.9 g/dL (14.0-18.0); Mean Corpuscular HGB CONC 31.3 g/dL (32.0-36.0); Mean Corpuscular Hemoglobin 27.3 pg (27.0-31.0); Mean Corpuscular Volume 87.2 fL (78.0-98.0); Mean Platelet Volume 9.3 fL (7.4-10.4); Platelet Count 147 thou/uL (130-400); RBC Distribution Width 13.1 % (11.5-14.5); Red Blood Cell (RBC) Count 4.37 mill/uL (4.70-6.10); White Blood Cell (WBC) Count 5.9 thou/uL (4.8-10.8)
[2020-02-26 04:49] LABS: ALT (SGPT) 11 U/L (8-55); AST (SGOT) 8 U/L (5-34); Albumin 3.8 g/dL (3.4-4.8); Alkaline Phosphatase 83 U/L (40-110); Anion Gap 17 mmol/L (10-20); BUN (Urea Nitrogen) 10 mg/dL (8.4-25.7); Bilirubin, Total 0.7 mg/dL (0.2-1.2); Calc. Creatinine Clearance 165 mL/min (70-130); Calcium 8.9 mg/dL (7.8-10.44); Carbon Dioxide 25 mmol/L (23-31); Chloride 101 mmol/L (98-107); Globulin 3.9 g/dL (2.4-3.5); Glucose 141 mg/dL (80-115); Magnesium 1.9 mg/dL (1.6-2.6); Potassium 3.8 mmol/L (3.5-5.1); Protein, Total 7.7 g/dL (5.8-8.1); Sodium 139 mmol/L (136-145)
[2020-02-26] MEDS: HumaLOG 300 UNITS/3 ML VIAL SC PRN ×3 (06:29→17:40)
[2020-02-26] MEDS: Hydrochlorothiazide 25 MG TAB PO SCH (08:41)
[2020-02-26] MEDS: hydrALAZINE 25 MG TAB PO SCH ×2 (08:41→20:37)
[2020-02-26] MEDS: Losartan 25 MG TAB PO SCH (08:41)
[2020-02-26] MEDS: Aspirin Chewable 81 MG TAB PO SCH (08:41)
[2020-02-26] MEDS: Amlodipine 5 MG TAB PO SCH (08:42)
[2020-02-26] MEDS: Finasteride 5 MG TAB PO SCH (08:42)
[2020-02-26] MEDS: Potassium Chloride 10 MEQ TAB PO SCH ×2 (08:42→16:32)
[2020-02-26] MEDS: Carvedilol 6.25 MG TAB PO SCH ×2 (08:42→16:32)
[2020-02-26] MEDS ORDERED: Magnesium Sulfate 2 GM in Sodium Chloride 0.9% 100 ML IVPB SCH (09:30)
[2020-02-26] MEDS ORDERED: Magnesium 2 GM/50 ML 2 GM in Premix Bag 1 BAG IVPB SCH (09:30)
--- NOTE | 2020-02-26 10:17 | PDOC.CPN ---
- Subjective Date: 02/26/20 Time: 09:00 Interval history: Complaint of chronic chest pain. Walked this morning and SOB. BP improved. - Review of Systems General: denies: fever/chills, weight/appetite/sleep changes, night sweats, fatigue Respiratory: reports: shortness of breath Cardiovascular: reports: chest pain Gastrointestinal: denies: nausea, vomiting, diarrhea, constipation, abd pain, GI bleeding Musculoskeletal: denies: pain, tenderness, stiffness, swelling, arthritis/arthralgias Neurological: denies: numbness, syncope, seizure, weakness - Objective Allergies/Adverse Reactions: Allergies Allergy/AdvReac Type Severity Reaction Status Date / Time Iodine and Iodide Containing Allergy Verified 02/23/20 20:36 Produc lisinopril Allergy Verified 02/23/20 20:36 shellfish derived Allergy Verified 02/23/20 20:36 Sulfa (Sulfonamide Allergy Verified 02/23/20 20:36 Antibiotics) Visit Medications: Current Medications Acetaminophen (Acetaminophen 325 Mg Tab) 650 mg PO Q4H PRN PRN Reason: Headache/Fever/Mild Pain (1-3) Amlodipine Besylate (Amlodipine 5 Mg Tab) 5 mg PO DAILY [facility] Last Admin: 02/26/20 08:42 Dose: 5 mg Documented by: Aspirin (Aspirin Chewable 81 Mg Tab) 81 mg PO DAILY [facility] Last Admin: 02/26/20 08:41 Dose: 81 mg Documented by: Bisacodyl (Bisacodyl 5 Mg Tab) 10 mg PO DAILYPRN PRN PRN Reason: Constipation Carvedilol (Carvedilol 6.25 Mg Tab) 6.25 mg PO BID-[facility] Last Admin: 02/26/20 08:42 Dose: 6.25 mg Documented by: Dextrose/Water (Dextrose 50% Abboject 50 Ml Syringe) 25 gm SLOW IVP PRN PRN PRN Reason: Hypoglycemia Last Admin: 02/24/20 06:27 Dose: 25 gm Documented by: Doxazosin Mesylate (Doxazosin Mesylate 4 Mg Tab) 8 mg PO HS [facility] Last Admin: 02/25/20 20:48 Dose: 8 mg Documented by: Finasteride (Finasteride 5 Mg Tab) 5 mg PO DAILY [facility] Last Admin: 02/26/20 08:42 Dose: 5 mg Documented by: Glucagon (Glucagon 1 Mg/Ml Vial) 1 mg IM PRN PRN PRN Reason: Hypoglycemia Hydralazine HCl (Hydralazine 25 Mg Tab) 100 mg PO BID [facility] Last Admin: 02/26/20 08:41 Dose: 100 mg Documented by: Hydrochlorothiazide (Hydrochlorothiazide 25 Mg Tab) 25 mg PO DAILY [facility] Last Admin: 02/26/20 08:41 Dose: 25 mg Documented by: Dextrose/Water (D5w) 1,000 mls @ 0 mls/hr IV .Q0M PRN PRN Reason: Hypoglycemia Magnesium Sulfate 2 gm/ Device 50 mls @ 50 mls/hr IVPB NOW [facility] Stop: 02/26/20 11:30 Last Admin: 02/26/20 09:46 Dose: 50 mls Documented by: Insulin Human Lispro (Humalog 300 Units/3 Ml Vial) 0 units SC .BEDTIME SLIDING SC PRN PRN Reason: Bedtime Correctional Scale Last Admin: 02/25/20 20:55 Dose: 2 unit Documented by: Insulin Human Lispro (Humalog 300 Units/3 Ml Vial) 0 units SC .MILD SLIDING SCALE PRN PRN Reason: Mild Correctional Scale Last Admin: 02/26/20 06:29 Dose: 2 unit Documented by: Losartan Potassium (Losartan 25 Mg Tab) 50 mg PO DAILY [facility] Last Admin: 02/26/20 08:41 Dose: 50 mg Documented by: Ondansetron HCl (Ondansetron Odt 4 Mg Tab) 4 mg PO Q6H PRN PRN Reason: Nausea/Vomiting Ondansetron HCl (Ondansetron Pf 4 Mg/2 Ml Vial) 4 mg IVP Q6H PRN PRN Reason: Nausea/Vomiting Pantoprazole Sodium (Pantoprazole 40 Mg Tab) 40 mg PO [facility] Last Admin: 02/25/20 20:49 Dose: 40 mg Documented by: Potassium Chloride (Potassium Chlor[facility] 10 Meq Tab) [facility] Last Admin: 02/26/20 08:42 Dose: 10 meq Documented by: Senna/Docusate Sodium (Senokot S 8.6-50 Mg Tab) 2 tab PO BID PRN PRN Reason: Constipation Sodium Chloride (Flush - Normal Saline 10 Ml Syringe) 10 ml IVF PRN PRN PRN Reason: Saline Flush Tramadol HCl (Tramadol Hcl 50 Mg Tab) 50 mg PO BID PRN PRN Reason: Moderate to Severe Pain (4-10) Vital Signs & Weight: Vital Signs Temp Pulse Resp BP BP Pulse Ox 02/26/20 08:33 98.4 F 93 16 149/80 H 97 02/26/20 04:00 97.6 F 67 14 132/74 98 02/26/20 00:35 97 02/26/20 00:00 81 150/80 H Weight 306 lb 11.2 oz - Physical Exam General: alert & oriented x3, no apparent distress HEENT: mucus membranes moist Neck: supple neck Cardiac: regular rate and rhythm Lungs: clear to auscultation Neuro: grossly intact Abdomen: soft, non-tender Extremities: no edema - Labs Result Diagrams: 02/26/20 03:41 02/26/20 03:41 Troponin/CKMB CK-MB (CK-2) 1.2 ng/mL (0-6.6) 02/23/20 13:53 Troponin I 0.043 ng/mL (< 0.028) H 02/23/20 19:33 - Assessment/Plan Assessment/Plan: 1. Bradycardia 2. HTN 3. Acute diastolic CHF 4. SOB 5. Chest pain CP symptoms atypical, but given RFs and SOB discussed angio. He is sounding like he wants to proceed. Will d/w RG. NO changes to BP meds for now.
[2020-02-26] MEDS ORDERED: Communication Order-Pharmacy FS SCH (12:00)
--- NOTE | 2020-02-26 12:05 | PRG ---
DATE OF SERVICE: 02/26/2020 The patient was seen and examined with Amada Lackey. Mr. Cullen despite better blood pressure and despite diuresis, he continues to complain of shortness of breath. He is concerned about underlying coronary artery disease. He did have a stress test performed recently that was negative for ischemia. I discussed medical therapy versus coronary angiography. He prefers to proceed with coronary angiography. Discussed the procedure in full detail with Mr. Cullen. Risks include, but not limited to the following: I discussed the procedure in full detail with the patient. The risks of the procedure were also discussed. The risks of the procedure include but are not limited to the following: , stroke, WI, need for emergency surgery, loss of limb, bleeding, and infection, as well as a reaction to the dye causing kidney failure and needing long-term dialysis. I also discussed the risks of PCI to include all of the above including coronary dissection and perforation in addition to acute stent thrombosis and restenosis. All questions about the procedure were answered. Given the above, the patient agreed to proceed with coronary angiography and possible PCI. All questions were answered. Also discussed drug-coated versus nondrug-coated stent placement. There were no contraindications to proceed if needed. Job ID: [id number]
[2020-02-26] MEDS: Sodium Chloride 0.9% 1,000 ML IV SCH ×2 (12:26→22:00)
[2020-02-26] MEDS ORDERED: diphenhydrAMINE 25 MG CAP PO PRN (12:49)
[2020-02-26] MEDS ORDERED: predniSONE 20 MG TAB PO SCH (13:00)
[2020-02-26] MEDS: traMADol HCl 50 MG TAB PO PRN ×2 (16:33→20:43)
[2020-02-26] MEDS: predniSONE 20 MG TAB PO SCH ×2 (17:30→23:37)
--- NOTE | 2020-02-26 18:43 | PDOC.HOSPP ---
- Subjective Encounter Date: 02/26/20 Encounter Time: 10:30 Subjective: Patient seen and examined for diastolic heart failure exacerbation with bradycardia. Continues to have intermittent chest discomfort. Also has shortness of breath on exertion. Denies any lightheadedness, palpitations or sy ncope. - Objective Vital Signs & Weight: Vital Signs (12 hours) Temp Pulse Pulse Pulse Resp BP BP 02/26/20 17:37 02/26/20 16:28 98.7 F 95 16 02/26/20 14:06 98 108 H 138/73 155/78 H 02/26/20 12:23 98.8 F 94 16 02/26/20 08:33 98.4 F 93 16 BP BP BP BP Pulse Ox Pulse Ox Pulse Ox 02/26/20 17:37 140/65 133/69 135/68 02/26/20 16:28 131/73 97 02/26/20 14:06 97 98 02/26/20 12:23 133/80 97 02/26/20 08:33 149/80 H 97 Weight Weight 306 lb 11.2 oz I&O: 02/25/20 02/26/20 02/27/20 06:59 06:59 06:59 Intake Total 1320 830 600 Output Total 4425 2850 650 Balance -3105 -2020 -50 Result Diagrams: 02/26/20 03:41 02/26/20 03:41 Additional Labs: Accuchecks 02/26/20 02/26/20 02/26/20 16:41 10:29 05:25 POC Glucose 174 H 202 H 155 H 02/25/20 20:45 POC Glucose 235 H Abnormal Lab Results - Last 48 hrs 02/26/20 03:41: RBC 4.37 L, Hgb 11.9 L, Hct 38.1 L, MCHC 31.3 L, Monocytes % 10.8 H, Monocytes # 0.6 H 02/26/20 03:41: Globulin 3.9 H, Albumin/Globulin Ratio 1.0 L EKG Reviewed by me: Yes (Sinus rhythm on telemetry) Hospitalist ROS - Review of Systems Constitutional: denies: fever, chills, sweats, weakness, malaise, other Gastrointestinal: denies: nausea, vomiting, abdominal pain, diarrhea, const ipation, melena, hematochezia, other - Medication Medications: Active Medications Generic Name Dose Route Start Last Admin Trade Name Freq PRN Reason Stop Dose Admin Amlodipine Besylate 5 mg 02/25/20 09:00 02/26/20 08:42 Amlodipine 5 Mg Tab PO 5 mg DAILY [facility] Administration Aspirin 81 mg 02/24/20 09:00 02/26/20 08:41 Aspirin Chewable 81 Mg Tab PO 81 mg DAILY [facility] Administration Carvedilol 6.25 mg 02/25/20 17:00 02/26/20 16:32 Carvedilol 6.25 Mg Tab PO 6.25 mg BID-[facility] Administration Dextrose/Water 25 gm 02/23/20 17:43 02/24/20 06:27 Dextrose 50% Abboject 50 Ml Syringe SLOW IVP 25 gm PRN PRN Administration Hypoglycemia Doxazosin Mesylate 8 mg 02/24/20 21:00 02/25/20 20:48 Doxazosin Mesylate 4 Mg Tab PO 8 mg HS [facility] Administration Finasteride 5 mg 02/25/20 09:00 02/26/20 08:42 Finasteride 5 Mg Tab PO 5 mg DAILY [facility] Administration Hydralazine HCl 100 mg 02/24/20 21:00 02/26/20 08:41 Hydralazine 25 Mg Tab PO 100 mg BID [facility] Administration Hydrochlorothiazide 25 mg 02/25/20 09:00 02/26/20 08:41 Hydrochlorothiazide 25 Mg Tab PO 25 mg DAILY [facility] Administration Sodium Chloride 1,000 mls @ 100 mls/hr 02/26/20 12:00 02/26/20 12:26 Normal Saline 0.9% IV 1,000 mls .Q10H [facility] Administration Insulin Human Lispro 0 units 02/23/20 17:43 02/25/20 20:55 Humalog 300 Units/3 Ml Vial SC 2 unit .BEDTIME SLIDING SC PRN Administration Bedtime Correctional Scale Insulin Human Lispro 0 units 02/24/20 09:06 02/26/20 17:40 Humalog 300 Units/3 Ml Vial SC 2 unit .MILD SLIDING SCALE PRN Administration Mild Correctional Scale Losartan Potassium 50 mg 02/26/20 09:00 02/26/20 08:41 Losartan 25 Mg Tab PO 50 mg DAILY [facility] Administration Ondansetron HCl 4 mg 02/23/20 17:44 02/26/20 11:51 Ondansetron Pf 4 Mg/2 Ml Vial IVP 4 mg Q6H PRN Administration Nausea/Vomiting Pantoprazole Sodium 40 mg 02/24/20 21:00 02/25/20 20:49 Pantoprazole 40 Mg Tab PO 40 mg HS [facility] Administration Potassium Chloride 10 meq 02/25/20 17:00 02/26/20 16:32 Potassium Chloride 10 Meq Tab PO 10 meq BID-[facility] Administration Prednisone 30 mg 02/26/20 18:00 02/26/20 17:30 Prednisone 20 Mg Tab PO 30 mg Q6HR [facility] Administration Tramadol HCl 50 mg 02/24/20 09:06 02/26/20 16:33 Tramadol Hcl 50 Mg Tab PO 50 mg BID PRN Administration Moderate to Severe Pain (4-10) - Exam General Appearance: NAD Heart: RRR, no gallops Respiratory: no rales, rhonchi Gastrointestinal: soft, non-distended, normal bowel sounds Extremities: no cyanosis, 1+ LE edema Neurological: no new deficit Psychiatric: A&O x 3 Hosp A/P - Plan DVT proph w/SCDs Shortness of breath probably due to symptomatic bradycardia/CHF Acute on chronic hronic diastolic heart failure Atypical chest pain Diabetes mellitus type 2 with hypoglycemia Hypomagnesemia/hypokalemia Hypertension Hyperlipidemia GERD Chronic pain syndrome Benign prostatic hypertrophy Obesity with a BMI 38.8 CKD stage II Obstructive sleep apnea on CPAP Plan: Case discussed with cardiology. Plan for cardiac catheterization in a.m. Continue aspirin with Coreg. Continue hydrochlorothiazide. Magnesium and potassium will be replaced. Continue sliding scale. Continue fluid restriction. Counseled on congestive heart failure.
[2020-02-26] MEDS: Doxazosin Mesylate 4 MG TAB PO SCH (20:37)
[2020-02-26] MEDS ORDERED: Famotidine 20 MG TAB PO SCH (21:00)
[2020-02-26] MEDS ORDERED: Montelukast Sodium 10 mg Tablet PO SCH (21:00)
[2020-02-27 04:49] LABS: #Lymphocytes 1.1 thou/uL (1.20-3.40); #Monocytes 0.3 thou/uL (0.11-0.59); #Neutrophils 5.4 thou/uL (1.40-6.50); %Basophils 0.4 % (0.0-1.0); %Lymphocytes 15.8 % (21.0-51.0); %Monocytes 3.7 % (0.0-10.0); %Neutrophils 80.2 % (42.0-75.0); Hemoglobin 12.2 g/dL (14.0-18.0); Mean Corpuscular HGB CONC 30.2 g/dL (32.0-36.0); Mean Corpuscular Hemoglobin 26.1 pg (27.0-31.0); Mean Corpuscular Volume 86.3 fL (78.0-98.0); Mean Platelet Volume 9.3 fL (7.4-10.4); Platelet Count 166 thou/uL (130-400); RBC Distribution Width 13.2 % (11.5-14.5); Red Blood Cell (RBC) Count 4.67 mill/uL (4.70-6.10); White Blood Cell (WBC) Count 6.7 thou/uL (4.8-10.8)
[2020-02-27 05:06] LABS: ALT (SGPT) 11 U/L (8-55); AST (SGOT) 8 U/L (5-34); Albumin 3.8 g/dL (3.4-4.8); Alkaline Phosphatase 85 U/L (40-110); Anion Gap 15 mmol/L (10-20); BUN (Urea Nitrogen) 10 mg/dL (8.4-25.7); Bilirubin, Total 0.7 mg/dL (0.2-1.2); Calc. Creatinine Clearance 151 mL/min (70-130); Calcium 8.9 mg/dL (7.8-10.44); Carbon Dioxide 24 mmol/L (23-31); Chloride 101 mmol/L (98-107); Globulin 4.1 g/dL (2.4-3.5); Glucose 213 mg/dL (80-115); Magnesium 1.9 mg/dL (1.6-2.6); Potassium 4.9 mmol/L (3.5-5.1); Protein, Total 7.9 g/dL (5.8-8.1); Sodium 135 mmol/L (136-145)
[2020-02-27] MEDS: predniSONE 20 MG TAB PO SCH ×3 (05:31→16:40)
[2020-02-27] MEDS: hydrALAZINE 25 MG TAB PO SCH (05:32)
[2020-02-27] MEDS: Aspirin Chewable 81 MG TAB PO SCH (05:32)
[2020-02-27] MEDS: Amlodipine 5 MG TAB PO SCH (05:33)
[2020-02-27] MEDS: Carvedilol 6.25 MG TAB PO SCH ×2 (05:33→16:40)
[2020-02-27] MEDS: Losartan 25 MG TAB PO SCH (05:33)
[2020-02-27] MEDS: Finasteride 5 MG TAB PO SCH (05:33)
[2020-02-27] MEDS: Potassium Chloride 10 MEQ TAB PO SCH ×2 (05:34→16:40)
[2020-02-27] MEDS: Sodium Chloride 0.9% 1,000 ML IV SCH (05:36)
[2020-02-27] MEDS: traMADol HCl 50 MG TAB PO PRN ×2 (05:39→20:58)
[2020-02-27 08:32] LABS: SARS-CoV-2 NAA Rapid Test Not Detected (NotDetected)
[2020-02-27] MEDS ORDERED: Iopamidol 370 76% 100 ML VIAL ONE (08:54)
[2020-02-27] MEDS ORDERED: Nitroglycerin 100MG/250ML BOT 250 ML ONE (09:01)
[2020-02-27] MEDS ORDERED: Heparin 10,000 UNITS/ 10 ML VIAL ONE (09:02)
[2020-02-27] MEDS ORDERED: Verapamil 5 MG/2 ML VIAL ONE (09:02)
[2020-02-27] MEDS ORDERED: Midazolam HCl 2 mg/2 ml Vial ONE (09:13)
[2020-02-27] MEDS ORDERED: Fentanyl 100 MCG/2 ML VIAL ONE (09:13)
[2020-02-27] MEDS ORDERED: Sodium Chloride 0.9% 200 ML IV PRN (09:46)
[2020-02-27] MEDS ORDERED: Acetaminophen/Codeine 30-300mg Tablet PO PRN ×2 (09:46)
[2020-02-27] MEDS ORDERED: Nitroglycerin 0.4 MG TAB (25 Tab Bottle) SL PRN (09:46)
[2020-02-27] MEDS ORDERED: Sodium Chloride 0.9% 1,000 ML IV SCH (10:00)
[2020-02-27] MEDS: Hydrochlorothiazide 25 MG TAB PO SCH (10:05)
[2020-02-27] MEDS: HumaLOG 300 UNITS/3 ML VIAL SC PRN ×2 (18:13→21:09)
[2020-02-27] MEDS: Doxazosin Mesylate 4 MG TAB PO SCH (21:01)
--- NOTE | 2020-02-27 22:26 | PDOC.HOSPP ---
- Subjective Encounter Date: 02/27/20 Encounter Time: 13:00 Subjective: Patient seen and examined for shortness of breath with chest discomfort. Continues to have shortness of breath on [id number] exertion. Underwent cardiac catheterization today. - Objective Vital Signs & Weight: Vital Signs (12 hours) Temp Pulse Resp BP Pulse Ox 02/27/20 16:23 98.4 F 99 16 144/71 H 96 02/27/20 11:55 98.4 F 82 20 146/76 H 95 Weight Weight 306 lb 11.2 oz I&O: 02/26/20 02/27/20 02/28/20 06:59 06:59 06:59 Intake Total 830 2200 950 Output Total 2850 1450 700 Balance -2019 750 250 Result Diagrams: 02/27/20 04:12 02/27/20 04:12 Additional Labs: Accuchecks 02/27/20 02/27/20 02/27/20 21:06 16:45 10:42 POC Glucose 230 H 219 H 213 H 02/27/20 02/26/20 05:30 20:25 POC Glucose 208 H 232 H Abnormal Lab Results - Last 48 hrs 02/26/20 03:41: RBC 4.37 L, Hgb 11.9 L, Hct 38.1 L, MCHC 31.3 L, Monocytes % 10.8 H, Monocytes # 0.6 H 02/26/20 03:41: Globulin 3.9 H, Albumin/Globulin Ratio 1.0 L 02/27/20 04:12: RBC 4.67 L, Hgb 12.2 L, Hct 40.3 L, MCH 26.1 L, MCHC 30.2 L, Neutrophils % 80.2 H, Lymphocytes % 15.8 L, Lymphocytes # 1.1 L 02/27/20 04:12: Sodium 135 L, Globulin 4.1 H, Albumin/Globulin Ratio 0.9 L EKG Reviewed by me: Yes (Sinus rhythm on telemetry) Hospitalist ROS - Review of Systems Respiratory: reports: SOB with excertion. denies: cough, dry, shortness of breath, hemoptysis, pleuritic pain, sputum, wheezing, other Gastrointestinal: denies: nausea, vomiting, abdominal pain, diarrhea, constipation, melena, hematochezia, other - Medication Medications: Active Medications Generic Name Dose Route Start Last Admin Trade Name Freq PRN Reason Stop Dose Admin Acetaminophen 650 mg 02/23/20 17:44 02/27/20 16:39 Acetaminophen 325 Mg Tab PO 650 mg Q4H PRN Administration Headache/Fever/Mild Pain (1-3) Amlodipine Besylate 5 mg 02/25/20 09:00 02/27/20 05:33 Amlodipine 5 Mg Tab PO 5 mg DAILY [facility] Administration Aspirin 81 mg 02/24/20 09:00 02/27/20 05:32 Aspirin Chewable 81 Mg Tab PO 81 mg DAILY [facility] Administration Carvedilol 6.25 mg 02/25/20 17:00 02/27/20 16:40 Carvedilol 6.25 Mg Tab PO 6.25 mg BID-[facility] Administration Dextrose/Water 25 gm 02/23/20 17:43 02/24/20 06:27 Dextrose 50% Abboject 50 Ml Syringe SLOW IVP 25 gm PRN PRN Administration Hypoglycemia Doxazosin Mesylate 8 mg 02/24/20 21:00 02/27/20 21:01 Doxazosin Mesylate 4 Mg Tab PO 8 mg HS [facility] Administration Finasteride 5 mg 02/25/20 09:00 02/27/20 05:33 Finasteride 5 Mg Tab PO 5 mg DAILY [facility] Administration Hydralazine HCl 100 mg 02/24/20 21:00 02/27/20 05:32 Hydralazine 25 Mg Tab PO 100 mg BID [facility] Administration Hydrochlorothiazide 25 mg 02/25/20 09:00 02/27/20 10:05 Hydrochlorothiazide 25 Mg Tab PO 25 mg DAILY [facility] Administration Insulin Human Lispro 0 units 02/23/20 17:43 02/27/20 21:09 Humalog 300 Units/3 Ml Vial SC 2 unit .BEDTIME SLIDING SC PRN Administration Bedtime Correctional Scale Insulin Human Lispro 0 units 02/24/20 09:06 02/27/20 18:13 Humalog 300 Units/3 Ml Vial SC 3 unit .MILD SLIDING SCALE PRN Administration Mild Correctional Scale Losartan Potassium 50 mg 02/26/20 09:00 02/27/20 05:33 Losartan 25 Mg Tab PO 50 mg DAILY [facility] Administration Ondansetron HCl 4 mg 02/23/20 17:44 02/26/20 11:51 Ondansetron Pf 4 Mg/2 Ml Vial IVP 4 mg Q6H PRN Administration Nausea/Vomiting Pantoprazole Sodium 40 mg 02/24/20 21:00 02/27/20 20:58 Pantoprazole 40 Mg Tab PO 40 mg HS [facility] Administration Potassium Chloride 10 meq 02/25/20 17:00 02/27/20 16:40 Potassium Chloride 10 Meq Tab PO 10 meq BID-[facility] Administration Prednisone 30 mg 02/26/20 18:00 02/27/20 16:40 Prednisone 20 Mg Tab PO 30 mg Q6HR [facility] Administration Tramadol HCl 50 mg 02/24/20 09:06 02/27/20 20:58 Tramadol Hcl 50 Mg Tab PO 50 mg BID PRN Administration Moderate to Severe Pain (4-10) - Exam General Appearance: NAD Neck: supple, symmetric Heart: RRR, no gallops Respiratory: no wheezes, no ronchi Gastrointestinal: soft, non-tender, normal bowel sounds Extremities: no cyanosis, no clubbing Skin: normal turgor Musculoskeletal: generalized weakness Hosp A/P - Plan DVT proph w/SCDs Shortness of breath with symptomatic bradycardia of unclear etiology Acute on chronic hronic diastolic heart failure Atypical chest pain Diabetes mellitus type 2 with hypoglycemia Hypomagnesemia/hypokalemia Hypertension Hyperlipidemia GERD Chronic pain syndrome Benign prostatic hypertrophy Obesity with a BMI 38.8 CKD stage II Obstructive sleep apnea on CPAP Plan: Underwent cardiac catheterization todayreport pending at this time. Continues troponin of chest discomfort. Patient was recently evaluated by Dr. Wilson as outpatient. Will consult pulmonary. He is scheduled for HR CT in next 2 weeks as outpatient. Continue carvedilol, aspirin, HCTZ and losartan. Continue Singulair and other medications as above. Continue sliding scale. BMP in a.m. Continue other medications as above
[2020-02-28] MEDS: hydrALAZINE 25 MG TAB PO SCH ×3 (00:10→22:19)
[2020-02-28] MEDS: predniSONE 20 MG TAB PO SCH ×4 (00:22→17:30)
[2020-02-28 04:54] LABS: Anion Gap 16 mmol/L (10-20); BUN (Urea Nitrogen) 16 mg/dL (8.4-25.7); Calc. Creatinine Clearance 146 mL/min (70-130); Calcium 8.8 mg/dL (7.8-10.44); Carbon Dioxide 24 mmol/L (23-31); Chloride 99 mmol/L (98-107); Glucose 204 mg/dL (80-115); Potassium 4.7 mmol/L (3.5-5.1); Sodium 134 mmol/L (136-145)
[2020-02-28] MEDS: HumaLOG 300 UNITS/3 ML VIAL SC PRN ×4 (06:13→22:19)
[2020-02-28] MEDS: Aspirin Chewable 81 MG TAB PO SCH (08:20)
[2020-02-28] MEDS: Carvedilol 6.25 MG TAB PO SCH ×2 (08:20→17:30)
[2020-02-28] MEDS: Finasteride 5 MG TAB PO SCH (08:20)
[2020-02-28] MEDS: Potassium Chloride 10 MEQ TAB PO SCH (08:20)
[2020-02-28] MEDS: Hydrochlorothiazide 25 MG TAB PO SCH (08:20)
[2020-02-28] MEDS: Losartan 25 MG TAB PO SCH (08:20)
[2020-02-28] MEDS: Amlodipine 5 MG TAB PO SCH (08:20)
--- NOTE | 2020-02-28 09:34 | CT ---
EXAM: CT Chest High Resolution PROVIDED CLINICAL HISTORY: Dyspnea COMPARISON: None FINDINGS: The heart, pericardium and great vessels are suboptimally evaluated by HRCT. Vascular calcification i ncluding coronary calcium is demonstrated. There is no evidence for thoracic lymph node enlargement. There is no significant pleural fluid evident. No evidence for pneumothorax. There is cylindrical bronchiectasis involving the basilar segments of both lower lobes as well as rig ht middle lobe. The airway appears patent. There is no evidence for significant interstitial opacity. Evaluation for solitary lung nodules is li mited, without evidence for diffuse nodularity. No focal consolidation or groundglass opacity is evident. The osseous structures appear grossly unremarkable. IMPRESSION: 1. No evidence for interstitial lung disease. 2. Bronchiectasis as described.
[2020-02-28] MEDS: traMADol HCl 50 MG TAB PO PRN (11:50)
--- NOTE | 2020-02-28 15:03 | CON ---
DATE OF CONSULTATION: HISTORY OF PRESENT ILLNESS: Mr. Cullen is a pleasant 69-year-old, seen by me for sleep apnea. In January, he saw me with complaints of shortness of breath. Chest radiograph was suggestive of an increase in interstitial markings, so I recommended CT scanning of his chest. Apparently, the paralegal legal secretary was unable to get that scheduled in [facility] until March. He presented here with similar complaints and has undergone cardiac catheterization, which showed minimal coronary artery disease. I was consulted. PAST MEDICAL HISTORY: Remarkable for: 1. Sleep apnea. 2. Obesity. 3. Diabetes. 4. History of diastolic dysfunction. 5. History of hypertension. 6. History of cholecystectomy. 7. History of knee surgery. SOCIAL HISTORY: Nonsmoker and nondrinker. FAMILY HISTORY: Negative for lung disease in early age. ALLERGIES: HE REPORTS ALLERGIES TO SULFA, IODINE, AND FRANCO INHIBITORS. REVIEW OF SYSTEMS: Ten-point review of systems is otherwise negative. PHYSICAL EXAMINATION: GENERAL: He is in no distress. VITAL SIGNS: He is afebrile, heart rate is 80, respiratory rate is 20, oximetry is 97 on room air, and blood pressure 131/71. HEAD AND NECK: Unremarkable. LUNGS: Clear. HEART: Regular rhythm. S1 and S2 are normal. ABDOMEN: Soft and nontender. EXTREMITIES: Without clubbing, cyanosis, or edema. NEUROLOGIC: Nonfocal. LABORATORY DATA: White count 6.7, hemoglobin 12.2, and platelets 166. Electrolytes are normal. Glucoses were mildly elevated. Chest x-ray on admission suggestive of an increase in interstitial markings, but the size probably affects penetration on the film. IMPRESSION: Dyspnea on exertion of unclear etiology. I suspect some of his deconditioning and size, but high-resolution CT and spirometry will be helpful. Job ID: [id number]
--- NOTE | 2020-02-28 20:42 | PDOC.HOSPP ---
- Subjective Encounter Date: 02/28/20 Encounter Time: 15:00 Subjective: Patient seen and examined for shortness of breath of unclear etiology. Shortness of breath slightly better. Denies any cough or fever. No chest pain or palpitations. - Objective Vital Signs & Weight: Vital Signs (12 hours) Temp Pulse Pulse Pulse Resp BP BP 02/28/20 16:10 98.8 F 86 18 02/28/20 12:00 98 F 78 18 02/28/20 09:45 91 91 151/78 H 121/64 BP BP Pulse Ox Pulse Ox Pulse Ox 02/28/20 16:10 134/69 97 02/28/20 12:00 128/70 98 02/28/20 09:45 98 100 Weight Weight 307 lb 11.2 oz I&O: 02/27/20 02/28/20 02/29/20 06:59 06:59 06:59 Intake Total 2200 1190 850 Output Total 1450 1350 800 Balance 750 -160 50 Result Diagrams: 02/27/20 04:12 02/28/20 04:07 Additional Labs: Accuchecks 02/28/20 02/28/20 02/28/20 19:37 16:42 10:20 POC Glucose 254 H 254 H 259 H 02/28/20 02/27/20 05:36 21:06 POC Glucose 216 H 230 H Abnormal Lab Results - Last 48 hrs 02/27/20 04:12: RBC 4.67 L, Hgb 12.2 L, Hct 40.3 L, MCH 26.1 L, MCHC 30.2 L, Neutrophils % 80.2 H, Lymphocytes % 15.8 L, Lymphocytes # 1.1 L 02/27/20 04:12: Sodium 135 L, Globulin 4.1 H, Albumin/Globulin Ratio 0.9 L 02/28/20 04:07: Sodium 134 L Radiology Reviewed by me: Yes (CT chestbronchiectasis) EKG Reviewed by me: Yes (Sinus rhythm on telemetry) Hospitalist ROS - Review of Systems Cardiovascular: denies: chest pain, palpitations, orthopnea, paroxysmal noc. dyspnea, edema, light headedness, other Gastrointestinal: denies: nausea, vomiting, abdominal pain, diarrhea, constipation, melena, hematochezia, other - Medication Medications: Active Medications Generic Name Dose Route Start Last Admin Trade Name Freq PRN Reason Stop Dose Admin Acetaminophen 650 mg 02/23/20 17:44 02/27/20 16:39 Acetaminophen 325 Mg Tab PO 650 mg Q4H PRN Administration Headache/Fever/Mild Pain (1-3) Amlodipine Besylate 5 mg 02/25/20 09:00 02/28/20 08:20 Amlodipine 5 Mg Tab PO 5 mg DAILY TERRY Administration Aspirin 81 mg 02/24/20 09:00 02/28/20 08:20 Aspirin Chewable 81 Mg Tab PO 81 mg DAILY TERRY Administration Carvedilol 6.25 mg 02/25/20 17:00 02/28/20 17:30 Carvedilol 6.25 Mg Tab PO 6.25 mg BID-WM TERRY Administration Dextrose/Water 25 gm 02/23/20 17:43 02/24/20 06:27 Dextrose 50% Abboject 50 Ml Syringe SLOW IVP 25 gm PRN PRN Administration Hypoglycemia Doxazosin Mesylate 8 mg 02/24/20 21:00 02/27/20 21:01 Doxazosin Mesylate 4 Mg Tab PO 8 mg HS TERRY Administration Finasteride 5 mg 02/25/20 09:00 02/28/20 08:20 Finasteride 5 Mg Tab PO 5 mg DAILY TERRY Administration Hydralazine HCl 100 mg 02/24/20 21:00 02/28/20 08:19 Hydralazine 25 Mg Tab PO 100 mg BID TERRY Administration Hydrochlorothiazide 25 mg 02/25/20 09:00 02/28/20 08:20 Hydrochlorothiazide 25 Mg Tab PO 25 mg DAILY TERRY Administration Insulin Human Lispro 0 units 02/23/20 17:43 02/28/20 11:47 Humalog 300 Units/3 Ml Vial SC 3 unit .BEDTIME SLIDING SC PRN Administration Bedtime Correctional Scale Losartan Potassium 50 mg 02/26/20 09:00 02/28/20 08:20 Losartan 25 Mg Tab PO 50 mg DAILY TERRY Administration Ondansetron HCl 4 mg 02/23/20 17:44 02/26/20 11:51 Ondansetron Pf 4 Mg/2 Ml Vial IVP 4 mg Q6H PRN Administration Nausea/Vomiting Pantoprazole Sodium 40 mg 02/24/20 21:00 02/27/20 20:58 Pantoprazole 40 Mg Tab PO 40 mg HS TERRY Administration Prednisone 30 mg 02/26/20 18:00 02/28/20 17:30 Prednisone 20 Mg Tab PO 30 mg Q6HR TERRY Administration Tramadol HCl 50 mg 02/24/20 09:06 02/28/20 11:50 Tramadol Hcl 50 Mg Tab PO 50 mg BID PRN Administration Moderate to Severe Pain (4-10) - Exam General Appearance: NAD Heart: RRR, no gallops Respiratory: no wheezes, no rales Respiratory - other findings: Coarse breath sounds Gastrointestinal: soft, non-tender, normal bowel sounds Extremities: no cyanosis, no clubbing Neurological: no new deficit Hosp A/P - Plan DVT proph w/SCDs Shortness of breath of unclear etiology Symptomatic bradycardia Acute on chronic diastolic heart failure Atypical chest pain Mild coronary artery disease Diabetes mellitus type 2 with hypoglycemia Hypomagnesemia/hypokalemia Hypertension Hyperlipidemia GERD Chronic pain syndrome Benign prostatic hypertrophy Obesity with a BMI 38.8 CKD stage II Obstructive sleep apnea on CPAP Plan: Patient continues to have shortness of breath on exertion. He underwent chest HRCT scan which showed bronchiectasis involving bilateral lower lobes as well as right middle lobe. There was no significant interstitial opacity. PFT pending at this time. Patient has hyperglycemia due to steroidspatient is allergic to iodine. Will continue amlodipine, carvedilol, hydralazine, hydrochlorothiazide and losartan. Add glipizide at low-dose due to significant hyperglycemia. Continue other medications as above
[2020-02-28] MEDS ORDERED: glipiZIDE 5 MG TAB PO SCH (20:45)
[2020-02-28] MEDS: Doxazosin Mesylate 4 MG TAB PO SCH (22:19)
[2020-02-29] MEDS: predniSONE 20 MG TAB PO SCH ×3 (02:13→11:38)
--- NOTE | 2020-02-29 05:37 | PRG ---
DATE OF SERVICE: 02/28/2020 SUBJECTIVE: Mr. Cullen continues to complain of shortness of breath with exertion. No chest pain/pressure noted. His recent angiogram did suggest mild coronary artery disease with 35% stenosis of the proximal to mid right coronary artery. Otherwise, no significant disease. His LVEF has been normal. His last stress study performed in December 2019, all suggested no significant ischemia with normal LVEF. He is currently being evaluated by Dr. Ganesh Wilson for interstitial lung disease. OBJECTIVE: GENERAL: Patient is a pleasant male who is in no acute distress. The patient appears their stated age. VITAL SIGNS: Blood pressure 131/71, pulse 80, temperature 97.6. NEUROLOGIC: The patient is alert and oriented x3 with no focal neurologic deficits. HEENT: Sclerae without icterus. Mouth has moist mucous membranes with normal pallor. NECK: No JVD. Carotid upstroke brisk. No bruits bilaterally. LUNGS: Clear to auscultation with unlabored respirations. BACK: No scoliosis or kyphosis. CARDIAC: Regular rate and rhythm with normal S1 and S2. No S3 or S4 noted. No significant rubs, murmurs, thrills, or gallops noted throughout the precordium. PMI is not displaced. There is no parasternal heave. ABDOMEN: Soft, nontender, nondistended. No peritoneal signs present. No hepatosplenomegaly. No abnormal striae. EXTREMITIES: 2+ femoral and 2+ dorsalis pedis pulses. No cyanosis, clubbing, or edema. SKIN: No gross abnormalities. PERTINENT LABORATORY DATA: Hemoglobin 12.2. Creatinine 0.94. IMPRESSION: 1. Shortness of breath. 2. Hypertension. 3. Mild coronary artery disease. RECOMMENDATIONS: From a CV standpoint, Mr. Cullen has no current coronary artery disease that would suggest a cause for his shortness of breath. We will await final recommendation of Dr. Ganesh Wilson. Otherwise, from my standpoint, I have no further recommendations. The patient is to follow up with Dr. Jos Obrien as an outpatient. Job ID: [id number]
[2020-02-29] MEDS: HumaLOG 300 UNITS/3 ML VIAL SC PRN ×2 (05:51→11:38)
[2020-02-29] MEDS ORDERED: glipiZIDE 5 MG TAB PO SCH (07:30)
[2020-02-29] MEDS: Finasteride 5 MG TAB PO SCH (08:45)
[2020-02-29] MEDS: Aspirin Chewable 81 MG TAB PO SCH (08:45)
[2020-02-29] MEDS: hydrALAZINE 25 MG TAB PO SCH (08:45)
[2020-02-29] MEDS: Carvedilol 6.25 MG TAB PO SCH (08:46)
[2020-02-29] MEDS: Amlodipine 5 MG TAB PO SCH (08:46)
[2020-02-29] MEDS: Hydrochlorothiazide 25 MG TAB PO SCH (08:46)
[2020-02-29] MEDS: Losartan 25 MG TAB PO SCH (08:47)
[2020-02-29 11:37] VITALS: BP 133/72; TEMP 97.8
--- NOTE | 2020-02-29 15:06 | PRG ---
DATE OF SERVICE: 02/29/[address] was reviewed. He had no evidence of interstitial disease. He has some very mild bronchiectasis. Pulmonary function tests have not been done and may not be able to be done given the situation with COVID. This can be done as an outpatient. I doubt seriously that he has asthma. He weighs over 300 pounds and is 6 feet 2 inches tall. I suspect his weight is contributing to his dyspnea on exertion, and it may be the only factor combined with deconditioning. He has back and knee problems and gets absolutely no exercise. I have asked him to get an exercise bicycle and work towards 30 minutes a day. I will see him back in the office in 6 weeks. Job ID: [id number]
--- NOTE | 2020-02-29 21:11 | PDOC.DS.DS ---
Provider - Provider Date of Admission: 02/23/20 16:29 Date of Discharge: 02/29/20 Admitting Provider: Jason Stoddard DO Consultations: Cardiology, Pulmonary Primary Care Physician: [facility] Course - Hospital Course Hospital Course: Patient is a 69-year-old male with hypertension, diabetes mellitus type 2, hyperlipidemia and obstructive sleep apnea on CPAP presented to the emergency room with shortness of breath on mild exertion that is progressively getting worse. He also had some lightheadedness without any palpitations. He was found to have significant bradycardia in the emergency room. Please refer to the history and physical for further details. The patient was admitted to the hospital with a diagnosis of shortness of breath of unclear etiology. He was evaluated by cardiology. Beta-blockers and calcium channel blockers were held due to bradycardia. He underwent cardiac catheterization on 02/26 that showed mild coronary artery disease with normal ejection fraction. Later on carvedilol was added. He improved with medication optimization per cardiology. Due to persistent dyspnea he was also evaluated by pulmonary Dr. Wilson. A chest CT scan was obtained that showed changes consistent with bronchiectasis mainly in the lower lobes as well as in the right middle lobe. His dyspnea appears to be multifactorial. An outpatient PFT will be obtained. He was advised on lifestyle modification. He has been cleared by consultants for discharge. Final diagnosis: Shortness of breath of unclear etiology Symptomatic bradycardia Acute on chronic diastolic heart failure Atypical chest pain Mild coronary artery disease Diabetes mellitus type 2 with hypoglycemia Hypomagnesemia/hypokalemia Hypertension Hyperlipidemia GERD Chronic pain syndrome Benign prostatic hypertrophy Obesity with a BMI 38.8 CKD stage II Obstructive sleep apnea on CPAP Resuscitation Status: 02/23/20 17:44 Resuscitation Status Routine Co-Sign Provider: Resuscitation Status: FULL: Full Resuscitation Discussed with: patient - Labs Lab Results: 02/27/20 04:12 02/28/20 04:07 Abnormal Lab Results - Last 48 hrs 02/28/20 04:07: Sodium 134 L - Physical Exam Vitals: Vital Signs (12 hours) Temp Pulse Pulse Pulse Resp BP BP 02/29/20 11:36 97.8 F 89 16 02/29/20 09:40 92 86 148/78 H 124/62 BP Pulse Ox Pulse Ox 02/29/20 11:36 133/72 97 02/29/20 09:40 98 Weight Weight 301 lb 12.8 oz Physical Exam: The patient was seen and examined on the day of discharge. Plan - Discharge Medications Prescriptions: Carvedilol [Coreg] 6.25 mg PO BID-WM #60 tab Hydrochlorothiazide 25 mg PO DAILY #30 tab Losartan Potassium 50 mg PO DAILY #30 tablet Amlodipine [Norvasc] 5 mg PO DAILY #30 tab Home Medications: Medication Instructions Recorded Confirmed Type Amitriptyline HCl [Elavil] 100 mg PO HS 02/23/20 02/23/20 History Doxazosin Mesylate [Cardura] 8 mg PO HS 02/23/20 02/23/20 History Finasteride [Proscar] 5 mg PO DAILY 02/23/20 02/23/20 History Metoclopramide HCl [Reglan] 10 mg PO ACHS 02/23/20 02/23/20 History Ondansetron [Zofran ODT] 8 mg PO BID PRN 02/23/20 02/23/20 History Pantoprazole [Protonix] 40 mg PO HS 02/23/20 02/23/20 History Simvastatin 80 mg PO HS 02/23/20 02/23/20 History hydrALAZINE HCl [Hydralazine HCl] 100 mg PO BID 02/23/20 02/23/20 History metFORMIN HCl [Metformin HCl] 1,000 mg PO BID 02/23/20 02/23/20 History traMADol HCl [Tramadol HCl] 50 mg PO BID 02/23/20 02/23/20 History Amlodipine [Norvasc] 5 mg PO DAILY #30 tab 02/29/20 Rx Aspirin Chewable [Aspirin Chewable 81 mg PO DAILY tab 02/29/20 Rx Tablet] Carvedilol [Coreg] 6.25 mg PO BID-WM #60 tab 02/29/20 Rx Hydrochlorothiazide 25 mg PO DAILY #30 tab 02/29/20 Rx Losartan Potassium 50 mg PO DAILY #30 tablet 02/29/20 Rx glipiZIDE [Glipizide] 5 mg PO BID #0 02/29/20 02/23/20 Rx Allergies: Iodine and Iodide Containing Produc Allergy (Verified 02/23/20 20:36) lisinopril Allergy (Verified 02/23/20 20:36) shellfish derived Allergy (Verified 02/23/20 20:36) Sulfa (Sulfonamide Antibiotics) Allergy (Verified 02/23/20 20:36) - Discharge Instructions Discharge Instructions:: BMP after 2 week - PCP to arrange/follow - Follow up Plan Referrals: Cardiac Rehab - [place] [Outside] - 7 Days (Your doctor has ordered Outpatient Cardiac Rehab for you to begin within 1-2 weeks after you go home from the hospital. The location nearest to you is the [facility]. The front office in [place] will call you in 1-2 days to get you scheduled for your evaluation. If you do not receive a call, please reach out to them at [phone] and request an appointment.) [facility] [Primary Care Provider] - 03/12/20 10:30 am (Follow up with your primary care provider at the [facility] in [place] in 1 week. ) Jos Obrien MD [Active] - 2-3 Weeks (Please call and schedule a follow up appointment with Dr. Obrien in 2-3 weeks. ) Ganesh Wilson MD [Active] - 2-3 Weeks (Please call and schedule a follow up appointment in 2-[address] Wilson. ) Disposition: HOME Quality - Care Measures CORE MEASURES:: N/A
== END 2020-02-29 16:20 | disposition home or self-care (01) | DRG 286 ==
LOC: ERS 13:25 → 2NO 16:29 → OBSVTOIN 16:29
PROVIDERS: ADMIT Family Medicine; ATTEND Internal Medicine
PROC: B2111ZZ Fluoroscopy of Multiple Coronary Arteries using Low Osmolar Contrast (ICD-10-PCS; principal; 2020-02-27)
DX: I13.0 Hypertensive heart and chronic kidney disease with heart failure and stage 1 through stage 4 chronic kidney disease, or unspecified chronic kidney disease (principal); I50.33 Acute on chronic diastolic (congestive) heart failure; I25.10 Atherosclerotic heart disease of native coronary artery without angina pectoris; Z20.828 Contact with and (suspected) exposure to other viral communicable diseases; E78.5 Hyperlipidemia, unspecified; G47.33 Obstructive sleep apnea (adult) (pediatric); E83.42 Hypomagnesemia; E87.6 Hypokalemia; K21.9 Gastro-esophageal reflux disease without esophagitis; G89.4 Chronic pain syndrome; N40.0 Benign prostatic hyperplasia without lower urinary tract symptoms; E66.9 Obesity, unspecified; N18.2 Chronic kidney disease, stage 2 (mild); R00.1 Bradycardia, unspecified; F41.9 Anxiety disorder, unspecified; E11.22 Type 2 diabetes mellitus with diabetic chronic kidney disease; J47.9 Bronchiectasis, uncomplicated; E11.65 Type 2 diabetes mellitus with hyperglycemia; E11.649 Type 2 diabetes mellitus with hypoglycemia without coma; Z99.89 Dependence on other enabling machines and devices; Z90.49 Acquired absence of other specified parts of digestive tract; Z68.38 Body mass index [BMI] 38.0-38.9, adult; Z88.2 Allergy status to sulfonamides; Z88.8 Allergy status to other drugs, medicaments and biological substances; Z91.041 Radiographic dye allergy status; Z91.013 Allergy to seafood; Z79.84 Long term (current) use of oral hypoglycemic drugs; Z79.899 Other long term (current) drug therapy
CPT/HCPCS: 36415; 36416; 71045; 71250; 80048; 80053; 80061; 82553; 83735; 83880; 84443; 84484; 85025; 93005; 93454; 93798; 94760; 99152; J1644; J1940; J2250; J2405; J3010; J3475; J7050; J7512; Q9967; U0002

== ENCOUNTER 2020-04-17 11:15 | Outpatient (CLI) | payer MEDICARE ==
--- NOTE | 2020-04-17 13:30 | RAD ---
LEFT HIP 2 VIEWS: HISTORY: Hip pain. FINDINGS: Femoral head contour is normal. No fracture or acute abnormality is seen. Mild degenerative change is noted. IMPRESSION: No acute abnormality. POS: AGW
== END 2020-04-17 11:16 | disposition home or self-care (01) ==
LOC: RAD-FRANK 11:15
PROVIDERS: ATTEND Registered Nurse Community Health
DX: M79.652 Pain in left thigh (principal)

== ENCOUNTER 2020-06-05 09:06 | Outpatient (CLI) | payer MEDICARE | END 2020-06-05 09:07 | disposition home or self-care (01) | LOC: BICRAD 09:06 | PROVIDERS: ATTEND Internal Medicine Critical Care Medicine | DX: R06.00 Dyspnea, unspecified (principal) | CPT/HCPCS: 71046 ==

== ENCOUNTER 2020-09-06 14:36 | Emergency (ER) | payer MEDICARE ==
[2020-09-06 15:50] LABS: Hemoglobin 12.1 g/dL (14.0-18.0); Mean Corpuscular HGB CONC 31.3 g/dL (32.0-36.0); Mean Corpuscular Hemoglobin 26.9 pg (27.0-31.0); Mean Corpuscular Volume 85.9 fL (78.0-98.0); Mean Platelet Volume 9.2 fL (7.4-10.4); Platelet Count 168 thou/uL (130-400); RBC Distribution Width 12.5 % (11.5-14.5); Red Blood Cell (RBC) Count 4.49 mill/uL (4.70-6.10)
[2020-09-06 16:06] LABS: ALT (SGPT) 16 U/L (8-55); AST (SGOT) 14 U/L (5-34); Alkaline Phosphatase 109 U/L (40-110); Anion Gap 16 mmol/L (10-20); BUN (Urea Nitrogen) 12 mg/dL (8.4-25.7); Bilirubin, Total 0.6 mg/dL (0.2-1.2); CK (CPK) 109 U/L (30-200); Calc. Creatinine Clearance 0 mL/min (70-130); Calcium 9.4 mg/dL (7.8-10.44); Carbon Dioxide 28 mmol/L (23-31); Chloride 96 mmol/L (98-107); Globulin 4.6 g/dL (2.4-3.5); Glucose 147 mg/dL (80-115); Potassium 3.9 mmol/L (3.5-5.1); Protein, Total 8.6 g/dL (5.8-8.1); Sodium 136 mmol/L (136-145)
[2020-09-06 16:15] LABS: Band 15 % (5-11); Eosinophils 3 % (0-10); Hypochromia SLIGHT = 6-15 cells (100X) (0-5/hpf); Lymphocytes 16 % (21-51); MDiff Complete? YES; Monocytes 14 % (0-10); Neutrophil 50 % (42-75); Platelet Morphology Comment Appears Adequate; Polychromasia SLIGHT = 2-3 cells (100X) (0-2/hpf); Reactive Lymphocytes 2 % (0-10); Target Cells SLIGHT = 2-5 cells (100X) (0-1/hpf)
[2020-09-06 16:26] LABS: CKMB 1.5 ng/mL (0-6.6)
== END 2020-09-06 16:59 | disposition home or self-care (01) ==
LOC: ERS 14:36
DX: J18.9 Pneumonia, unspecified organism (principal); E78.5 Hyperlipidemia, unspecified; I10 Essential (primary) hypertension; E11.9 Type 2 diabetes mellitus without complications; Z79.899 Other long term (current) drug therapy; Z79.84 Long term (current) use of oral hypoglycemic drugs
CPT/HCPCS: 36415; 71045; 80053; 82550; 82553; 83880; 84484; 85025; 93005; 94760

== ENCOUNTER 2021-06-13 09:08 | Inpatient (IN) | payer MEDICARE ==
[2021-06-13 10:24] LABS: ALT (SGPT) 8 U/L (8-55); AST (SGOT) 8 U/L (5-34); Albumin 3.6 g/dL (3.4-4.8); Alkaline Phosphatase 93 U/L (40-110); Anion Gap 13 mmol/L (10-20); BUN (Urea Nitrogen) 7 mg/dL (8.4-25.7); Calc. Creatinine Clearance 0 mL/min (70-130); Calcium 8.9 mg/dL (7.8-10.44); Carbon Dioxide 26 mmol/L (23-31); Chloride 104 mmol/L (98-107); Globulin 3.8 g/dL (2.4-3.5); Glucose 168 mg/dL (80-115); Potassium 3.7 mmol/L (3.5-5.1); Protein, Total 7.4 g/dL (5.8-8.1); Sodium 139 mmol/L (136-145)
[2021-06-13 10:27] LABS: #Eosinphils 0.1 thou/uL (0.0-0.7); #Lymphocytes 1.2 thou/uL (1.20-3.40); #Monocytes 0.5 thou/uL (0.11-0.59); #Neutrophils 5.1 thou/uL (1.40-6.50); %Basophils 0.3 % (0.0-1.0); %Eosinophils 0.9 % (0.0-10.0); %Lymphocytes 17.4 % (21.0-51.0); %Neutrophils 74.5 % (42.0-75.0); Hemoglobin 10.6 g/dL (14.0-18.0); Mean Corpuscular HGB CONC 30.4 g/dL (32.0-36.0); Mean Corpuscular Hemoglobin 27.2 pg (27.0-31.0); Mean Corpuscular Volume 89.2 fL (78.0-98.0); Mean Platelet Volume 8.6 fL (7.4-10.4); Platelet Count 188 thou/uL (130-400); RBC Distribution Width 13.1 % (11.5-14.5); Red Blood Cell (RBC) Count 3.89 mill/uL (4.70-6.10); White Blood Cell (WBC) Count 6.9 thou/uL (4.8-10.8)
[2021-06-13 10:44] LABS: CKMB 1.4 ng/mL (0-6.6)
[2021-06-13 13:16] LABS: SARS-CoV-2 NAA Rapid Test Not Detected (NotDetected)
[2021-06-13] MEDS ORDERED: Ondansetron ODT 4 MG TAB SL PRN (16:00)
[2021-06-13] MEDS ORDERED: Acetaminophen 325 MG TAB PO PRN ×2 (16:00→17:18)
[2021-06-13] MEDS ORDERED: Ondansetron PF 4 MG/2 ML Vial IVP PRN ×2 (16:00→17:18)
[2021-06-13] MEDS ORDERED: Ondansetron ODT 4 MG TAB PO PRN ×2 (16:07→17:18)
[2021-06-13] MEDS ORDERED: hydrALAZINE 20 MG/ML VIAL SLOW IVP PRN (16:09)
[2021-06-13] MEDS ORDERED: Losartan 25 MG TAB PO SCH (16:15)
[2021-06-13 16:54] LABS: Troponin I 0.066 ng/mL (< 0.028)
[2021-06-13] MEDS: Metoclopramide HCl 10 MG TAB PO SCH ×2 (17:11→20:49)
[2021-06-13] MEDS: Carvedilol 6.25 MG TAB PO SCH (17:11)
[2021-06-13] MEDS ORDERED: Senokot S 8.6-50 MG TAB PO PRN (17:18)
[2021-06-13] MEDS ORDERED: Acetaminophen 650 MG Suppository PR PRN (17:18)
[2021-06-13] MEDS ORDERED: Guaifenesin DM 100-10/5 ML UDCUP PO PRN (17:18)
[2021-06-13] MEDS ORDERED: Furosemide 20 MG/2 ML VIAL SLOW IVP SCH (17:30)
[2021-06-13] MEDS: Atorvastatin Calcium 40 MG TAB PO SCH (20:48)
[2021-06-13] MEDS: Amitriptyline HCl 100 MG TAB PO SCH (20:48)
[2021-06-13] MEDS: Doxazosin Mesylate 4 MG TAB PO SCH (20:49)
[2021-06-13] MEDS: metFORMIN 500 MG TAB PO SCH (20:49)
[2021-06-13] MEDS: traMADol HCl 50 MG TAB PO SCH (20:50)
[2021-06-14 04:28] LABS: #Basophils 0.1 thou/uL (0.0-0.2); #Eosinphils 0.2 thou/uL (0.0-0.7); #Lymphocytes 1.9 thou/uL (1.20-3.40); %Basophils 0.7 % (0.0-1.0); %Eosinophils 2.9 % (0.0-10.0); %Lymphocytes 26.4 % (21.0-51.0); %Monocytes 14.1 % (0.0-10.0); %Neutrophils 55.9 % (42.0-75.0); Hemoglobin 10.4 g/dL (14.0-18.0); Mean Corpuscular HGB CONC 31.8 g/dL (32.0-36.0); Mean Corpuscular Hemoglobin 28.1 pg (27.0-31.0); Mean Corpuscular Volume 88.5 fL (78.0-98.0); Mean Platelet Volume 8.8 fL (7.4-10.4); Platelet Count 174 thou/uL (130-400); RBC Distribution Width 13.2 % (11.5-14.5); Red Blood Cell (RBC) Count 3.71 mill/uL (4.70-6.10); White Blood Cell (WBC) Count 7.2 thou/uL (4.8-10.8)
[2021-06-14 04:46] LABS: Anion Gap 14 mmol/L (10-20); BUN (Urea Nitrogen) 9 mg/dL (8.4-25.7); Calc. Creatinine Clearance 140 mL/min (70-130); Calcium 8.6 mg/dL (7.8-10.44); Carbon Dioxide 24 mmol/L (23-31); Chloride 104 mmol/L (98-107); Glucose 141 mg/dL (80-115); Sodium 138 mmol/L (136-145)
[2021-06-14] MEDS ORDERED: Furosemide 20 MG/2 ML VIAL SLOW IVP SCH (06:00)
[2021-06-14] MEDS: traMADol HCl 50 MG TAB PO SCH ×2 (08:21→21:13)
[2021-06-14] MEDS: Carvedilol 6.25 MG TAB PO SCH ×2 (08:21→17:24)
[2021-06-14] MEDS: Finasteride 5 MG TAB PO SCH (08:22)
[2021-06-14] MEDS: Metoclopramide HCl 10 MG TAB PO SCH ×4 (08:22→21:13)
[2021-06-14] MEDS: Losartan 25 MG TAB PO SCH (08:30)
[2021-06-14] MEDS: metFORMIN 500 MG TAB PO SCH ×2 (14:41→21:14)
[2021-06-14] MEDS: Furosemide 100 MG/10 ML VIAL SLOW IVP SCH (14:41)
[2021-06-14] MEDS ORDERED: Dextrose 5% in Water 1,000 ML IV PRN (15:00)
[2021-06-14] MEDS ORDERED: Dextrose 50% Abboject 50 ML SYRINGE SLOW IVP PRN (15:00)
[2021-06-14] MEDS: HumaLOG 300 UNITS/3 ML VIAL SC PRN (17:24)
[2021-06-14] MEDS: Atorvastatin Calcium 40 MG TAB PO SCH (21:12)
[2021-06-14] MEDS: Amitriptyline HCl 100 MG TAB PO SCH (21:12)
[2021-06-14] MEDS: Doxazosin Mesylate 4 MG TAB PO SCH (21:13)
[2021-06-15] MEDS: Furosemide 100 MG/10 ML VIAL SLOW IVP SCH ×2 (06:23→14:13)
[2021-06-15] MEDS: metFORMIN 500 MG TAB PO SCH ×2 (09:41→20:10)
[2021-06-15] MEDS: traMADol HCl 50 MG TAB PO SCH ×2 (09:42→20:10)
[2021-06-15] MEDS: Losartan 25 MG TAB PO SCH (09:42)
[2021-06-15] MEDS: Carvedilol 6.25 MG TAB PO SCH ×2 (09:42→17:58)
[2021-06-15] MEDS: Metoclopramide HCl 10 MG TAB PO SCH ×4 (09:43→20:10)
[2021-06-15] MEDS: Finasteride 5 MG TAB PO SCH (09:43)
[2021-06-15] MEDS ORDERED: Empagliflozin 10 MG TAB PO SCH (10:30)
[2021-06-15] MEDS: glipiZIDE 10 MG TAB PO SCH (17:01)
[2021-06-15] MEDS: Amitriptyline HCl 100 MG TAB PO SCH (20:09)
[2021-06-15] MEDS: Atorvastatin Calcium 40 MG TAB PO SCH (20:09)
[2021-06-15] MEDS: Doxazosin Mesylate 4 MG TAB PO SCH (20:10)
[2021-06-16] MEDS: Furosemide 100 MG/10 ML VIAL SLOW IVP SCH ×2 (05:29→15:09)
[2021-06-16 05:42] LABS: Anion Gap 17 mmol/L (10-20); BUN (Urea Nitrogen) 14 mg/dL (8.4-25.7); Calc. Creatinine Clearance 115 mL/min (70-130); Calcium 9.3 mg/dL (7.8-10.44); Carbon Dioxide 28 mmol/L (23-31); Chloride 97 mmol/L (98-107); Glucose 156 mg/dL (80-115); Potassium 3.8 mmol/L (3.5-5.1); Sodium 138 mmol/L (136-145)
[2021-06-16] MEDS ORDERED: Senokot S 8.6-50 MG TAB PO PRN (08:00)
[2021-06-16] MEDS: Empagliflozin 10 MG TAB PO SCH (09:18)
[2021-06-16] MEDS: Metoclopramide HCl 10 MG TAB PO SCH ×4 (09:19→20:02)
[2021-06-16] MEDS: Carvedilol 6.25 MG TAB PO SCH ×2 (09:19→17:40)
[2021-06-16] MEDS: Losartan 25 MG TAB PO SCH (09:20)
[2021-06-16] MEDS: metFORMIN 500 MG TAB PO SCH ×2 (09:20→20:02)
[2021-06-16] MEDS: traMADol HCl 50 MG TAB PO SCH ×2 (09:20→20:02)
[2021-06-16] MEDS: Finasteride 5 MG TAB PO SCH (09:20)
[2021-06-16] MEDS: glipiZIDE 10 MG TAB PO SCH (09:24)
[2021-06-16] MEDS ORDERED: Metolazone 2.5 MG TAB PO SCH (13:30)
[2021-06-16] MEDS: Doxazosin Mesylate 4 MG TAB PO SCH (20:01)
[2021-06-16] MEDS: Atorvastatin Calcium 40 MG TAB PO SCH (20:01)
[2021-06-16] MEDS: Amitriptyline HCl 100 MG TAB PO SCH (20:02)
[2021-06-17] MEDS: Metoclopramide HCl 10 MG TAB PO SCH ×2 (05:19→10:57)
[2021-06-17] MEDS: Furosemide 100 MG/10 ML VIAL SLOW IVP SCH (05:19)
[2021-06-17 05:20] LABS: Anion Gap 19 mmol/L (10-20); BUN (Urea Nitrogen) 20 mg/dL (8.4-25.7); Calc. Creatinine Clearance 106 mL/min (70-130); Calcium 9.2 mg/dL (7.8-10.44); Carbon Dioxide 24 mmol/L (23-31); Chloride 98 mmol/L (98-107); Glucose 176 mg/dL (80-115); Potassium 3.7 mmol/L (3.5-5.1); Sodium 137 mmol/L (136-145)
[2021-06-17 07:25] VITALS: TEMP 98.1
[2021-06-17] MEDS: Carvedilol 6.25 MG TAB PO SCH (07:27)
[2021-06-17] MEDS: traMADol HCl 50 MG TAB PO SCH (07:28)
[2021-06-17] MEDS: Losartan 25 MG TAB PO SCH (07:29)
[2021-06-17] MEDS: Finasteride 5 MG TAB PO SCH (07:29)
[2021-06-17] MEDS: metFORMIN 500 MG TAB PO SCH (07:29)
[2021-06-17] MEDS: Empagliflozin 10 MG TAB PO SCH (07:29)
[2021-06-17 07:35] VITALS: BMI 36.9
[2021-06-17] MEDS: HumaLOG 300 UNITS/3 ML VIAL SC PRN (10:57)
[2021-06-17] MEDS ORDERED: Furosemide 40 MG TAB PO SCH (14:00)
[2021-06-17 16:27] VITALS: BP 118/68
[2021-06-18] MEDS ORDERED: Furosemide 40 MG TAB PO SCH (07:30)
== END 2021-06-17 15:48 | disposition home or self-care (01) | DRG 291 ==
LOC: ERS 09:08 → 2SW 12:18 → OBSVTOIN 06-15 13:39
PROVIDERS: ADMIT Emergency Medicine; ATTEND Internal Medicine
PROC: 5A09357 Assistance with Respiratory Ventilation, Less than 24 Consecutive Hours, Continuous Positive Airway Pressure (ICD-10-PCS; principal; 2021-06-17)
DX: I11.0 Hypertensive heart disease with heart failure (principal); I50.33 Acute on chronic diastolic (congestive) heart failure; J96.01 Acute respiratory failure with hypoxia; N17.9 Acute kidney failure, unspecified; I25.10 Atherosclerotic heart disease of native coronary artery without angina pectoris; E78.5 Hyperlipidemia, unspecified; E11.9 Type 2 diabetes mellitus without complications; G47.33 Obstructive sleep apnea (adult) (pediatric); F41.9 Anxiety disorder, unspecified; Z20.822 Contact with and (suspected) exposure to COVID-19; E66.9 Obesity, unspecified; F32.A Depression, unspecified; R53.81 Other malaise; Z98.890 Other specified postprocedural states; Z90.49 Acquired absence of other specified parts of digestive tract; Z88.2 Allergy status to sulfonamides; Z88.8 Allergy status to other drugs, medicaments and biological substances; Z91.013 Allergy to seafood; Z79.899 Other long term (current) drug therapy; Z79.84 Long term (current) use of oral hypoglycemic drugs; Z79.51 Long term (current) use of inhaled steroids; Z68.36 Body mass index [BMI] 36.0-36.9, adult
CPT/HCPCS: 36415; 36416; 71045; 80048; 80053; 82553; 83880; 84484; 85025; 93005; 93306; 94640; 96374; 96376; G0378; J1815; J1940; J7620; U0002

== ENCOUNTER 2022-11-12 09:05 | Outpatient (CLI) | payer MEDICARE, OTHER | END 2022-11-12 09:06 | disposition home or self-care (01) | LOC: RAD 09:05 | PROVIDERS: ATTEND Internal Medicine Critical Care Medicine | DX: R06.00 Dyspnea, unspecified (principal) | CPT/HCPCS: 71046 ==

== ENCOUNTER 2023-12-19 09:00 | Inpatient (IN) | payer OTHER ==
[2023-12-19] MEDS ORDERED: Furosemide 40 MG (4 mL) VIAL ONE (09:45)
[2023-12-19 09:50] LABS: #Basophils 0.03 10x3/uL (0.0-0.2); %Basophils 0.5 % (0.0-1.0); %Eosinophils 0.8 % (0.0-10.0); %Lymphocytes 16.5 % (21.0-51.0); %Monocytes 6.9 % (0.0-10.0); Hematocrit 25.8 % (42.0-52.0); Hemoglobin 8.3 g/dL (14.0-18.0); Mean Corpuscular HGB CONC 32.2 g/dL (32.0-36.0); Mean Corpuscular Hemoglobin 26.3 pg (27.0-31.0); Mean Corpuscular Volume 81.9 fL (78.0-98.0); Mean Platelet Volume 10.3 fL (7.4-10.4); Platelet Count 212 10x3/uL (130-400); RBC Distribution Width 17.8 % (11.5-14.5); Red Blood Cell (RBC) Count 3.15 mill/uL (4.70-6.10)
[2023-12-19] MEDS ORDERED: Famotidine/PF 20 mg/2ml Vial ONE (10:07)
[2023-12-19] MEDS ORDERED: diphenhydrAMINE 50 MG/ML VIAL ONE (10:07)
[2023-12-19] MEDS ORDERED: methylPREDNISolone Sod Succ 40 MG VIAL ONE (10:07)
[2023-12-19 10:13] LABS: ALT (SGPT) 10 U/L (8-55); AST (SGOT) 7 U/L (5-34); Albumin 3.4 g/dL (3.4-4.8); Alkaline Phosphatase 88 U/L (40-110); Anion Gap 17 mmol/L (10-20); BUN (Urea Nitrogen) 12 mg/dL (8.4-25.7); Bilirubin, Total 1.1 mg/dL (0.2-1.2); Calc. Creatinine Clearance 0 mL/min (70-130); Calcium 8.9 mg/dL (7.8-10.44); Carbon Dioxide 24 mmol/L (23-31); Chloride 101 mmol/L (98-107); Estimated GFR 91; Globulin 4.1 g/dL (2.4-3.5); Glucose 125 mg/dL (83-110); Potassium 3.6 mmol/L (3.5-5.1); Protein, Total 7.5 g/dL (5.8-8.1); Sodium 138 mmol/L (136-145)
[2023-12-19 10:34] LABS: Troponin I 0.074 ng/mL (< 0.028)
[2023-12-19] MEDS ORDERED: Iopamidol-370 76% 500 ML MDV (1 ML CHARGE) ONE (11:03)
[2023-12-19] MEDS ORDERED: Ondansetron ODT 4 MG TAB PO PRN (13:09)
[2023-12-19] MEDS ORDERED: Ondansetron PF 4 MG/2 ML Vial IVP PRN (13:09)
[2023-12-19] MEDS ORDERED: Acetaminophen 650 MG Suppository PR PRN (13:09)
[2023-12-19] MEDS ORDERED: Glucagon 1 MG/ML KIT IM PRN (13:14)
[2023-12-19] MEDS ORDERED: Dextrose 5% in Water 1,000 ML IV PRN (13:14)
[2023-12-19] MEDS ORDERED: Dextrose 50% Abboject 50 ML SYRINGE SLOW IVP PRN (13:14)
[2023-12-19] MEDS ORDERED: Insulin Lispro 100 UNIT/ML 10 ML VIAL SC PRN (13:14)
[2023-12-19 14:08] LABS: Bacteria/HPF None Seen HPF (None Seen); Bilirubin Negative (Negative); Blood, Urine Negative (Negative); CAUTI Indications for Culture Dysuria,urgency,freq; Clarity Clear (Clear); Glucose, Urine (Dipstick) Normal (Negative); Ketone, Urine Negative (Negative); Leukocyte Negative Leu/uL (Negative); Nitrite Negative (Negative); Protein, Urine (Dipstick) 20 mg/dL (Neg-Trace); RBC/HPF None Seen HPF (0-3); Specific Gravity, Urine 1.019 (1.002-1.036); Squamous Epithelial None Seen HPF (0-3); WBC/HPF 0-3 HPF (0-3)
[2023-12-19 14:09] LABS: Troponin I 0.093 ng/mL (< 0.028)
[2023-12-19 14:10] LABS: Urine Culture Reflex No No
[2023-12-19] MEDS ORDERED: Ipratropium/Albuterol 3 ML NEB ONE (14:16)
[2023-12-19 15:04] VITALS: BMI 37.3
[2023-12-19] MEDS: Furosemide 40 MG (4 mL) VIAL SLOW IVP SCH (16:05)
[2023-12-19 17:26] LABS: Troponin I 0.119 ng/mL (< 0.028)
[2023-12-19] MEDS: Insulin Lispro 100 UNIT/ML 10 ML VIAL SC PRN (17:30)
[2023-12-19] MEDS ORDERED: Albuterol 200 PUFF (6.7GM INHALER) INH PRN (21:46)
[2023-12-19] MEDS: Carvedilol 25 MG TAB PO SCH (22:54)
[2023-12-19] MEDS: Doxazosin Mesylate 4 MG TAB PO SCH (22:54)
[2023-12-19] MEDS: traMADol HCl 50 MG TAB PO SCH (22:55)
[2023-12-19] MEDS: glipiZIDE 10 MG TAB PO SCH (22:56)
[2023-12-20 04:31] LABS: #Basophils Less than 0.03 10x3/uL (0.0-0.2); #Eosinophils Less than 0.03 10x3/uL (0.0-0.7); %Basophils 0.2 % (0.0-1.0); %Eosinophils 0.2 % (0.0-10.0); %Monocytes 9.9 % (0.0-10.0); %Neutrophils 70.5 % (42.0-75.0); Hematocrit 25.5 % (42.0-52.0); Hemoglobin 8.5 g/dL (14.0-18.0); Mean Corpuscular HGB CONC 33.3 g/dL (32.0-36.0); Mean Platelet Volume 10.5 fL (7.4-10.4); Platelet Count 222 10x3/uL (130-400); RBC Distribution Width 17.9 % (11.5-14.5); Red Blood Cell (RBC) Count 3.27 mill/uL (4.70-6.10)
[2023-12-20 04:50] LABS: Anion Gap 14 mmol/L (10-20); BUN (Urea Nitrogen) 15 mg/dL (8.4-25.7); Calc. Creatinine Clearance 134 mL/min (70-130); Carbon Dioxide 28 mmol/L (23-31); Chloride 98 mmol/L (98-107); Estimated GFR 87; Glucose 144 mg/dL (83-110); Iron 35 ug/dL (65-175); Iron Binding Capacity, Total 243 mcg/dL (261-462); Magnesium 1.3 mg/dL (1.6-2.6); Potassium 3.8 mmol/L (3.5-5.1); Sodium 136 mmol/L (136-145)
[2023-12-20 04:51] LABS: Iron 35 ug/dL (65-175); Iron Binding Capacity, Total 240 mcg/dL (261-462)
[2023-12-20 05:19] LABS: Ferritin 136.19 ng/mL (22-322)
[2023-12-20] MEDS: Losartan 25 MG TAB PO SCH (08:03)
[2023-12-20] MEDS: glipiZIDE 10 MG TAB PO SCH (08:04)
[2023-12-20] MEDS: traMADol HCl 50 MG TAB PO SCH (08:04)
[2023-12-20] MEDS: Empagliflozin 10 MG TAB PO SCH (08:06)
[2023-12-20] MEDS: Carvedilol 25 MG TAB PO SCH (08:06)
[2023-12-20] MEDS: Enoxaparin 40 MG (0.4 mL) SYRINGE SC SCH (08:07)
[2023-12-20] MEDS: Finasteride 5 MG TAB PO SCH (08:07)
[2023-12-20] MEDS: Sodium Ferric Gluconate 250 MG in Sodium Chloride 0.9% 250 ML 250 ML IVPB SCH (16:08)
[2023-12-20] MEDS: Amitriptyline HCl 100 MG TAB PO SCH (20:15)
[2023-12-20] MEDS: Pantoprazole DR 40 MG TAB PO SCH (20:15)
[2023-12-20] MEDS: Atorvastatin Calcium 40 MG TAB PO SCH (20:15)
[2023-12-21 04:28] LABS: #Basophils Less than 0.03 10x3/uL (0.0-0.2); %Basophils 0.3 % (0.0-1.0); %Eosinophils 1.8 % (0.0-10.0); %Lymphocytes 24.4 % (21.0-51.0); %Monocytes 10.8 % (0.0-10.0); %Neutrophils 62.4 % (42.0-75.0); Hematocrit 27.2 % (42.0-52.0); Hemoglobin 8.6 g/dL (14.0-18.0); Mean Corpuscular HGB CONC 31.6 g/dL (32.0-36.0); Mean Corpuscular Hemoglobin 26.3 pg (27.0-31.0); Mean Corpuscular Volume 83.2 fL (78.0-98.0); Mean Platelet Volume 10.6 fL (7.4-10.4); Platelet Count 251 10x3/uL (130-400); RBC Distribution Width 18.1 % (11.5-14.5); Red Blood Cell (RBC) Count 3.27 mill/uL (4.70-6.10)
[2023-12-21 04:42] LABS: Anion Gap 13 mmol/L (10-20); BUN (Urea Nitrogen) 14 mg/dL (8.4-25.7); Calc. Creatinine Clearance 117 mL/min (70-130); Calcium 8.8 mg/dL (7.8-10.44); Carbon Dioxide 32 mmol/L (23-31); Chloride 99 mmol/L (98-107); Estimated GFR 71; Glucose 136 mg/dL (83-110); Potassium 3.7 mmol/L (3.5-5.1); Sodium 140 mmol/L (136-145)
[2023-12-21] MEDS: Spironolactone 25 MG TAB PO SCH (10:42)
[2023-12-21] MEDS: Acetaminophen 325 MG TAB PO PRN (12:55)
[2023-12-21] MEDS: Sodium Ferric Gluconate 250 MG in Sodium Chloride 0.9% 250 ML 250 ML IVPB SCH (15:49)
[2023-12-22 05:09] LABS: #Basophils Less than 0.03 10x3/uL (0.0-0.2); %Basophils 0.4 % (0.0-1.0); %Eosinophils 2.1 % (0.0-10.0); %Lymphocytes 27.8 % (21.0-51.0); %Monocytes 10.6 % (0.0-10.0); %Neutrophils 58.7 % (42.0-75.0); Hematocrit 26.6 % (42.0-52.0); Hemoglobin 8.5 g/dL (14.0-18.0); Mean Corpuscular Hemoglobin 26.2 pg (27.0-31.0); Mean Corpuscular Volume 82.1 fL (78.0-98.0); Mean Platelet Volume 10.3 fL (7.4-10.4); Platelet Count 233 10x3/uL (130-400); RBC Distribution Width 17.9 % (11.5-14.5); Red Blood Cell (RBC) Count 3.24 mill/uL (4.70-6.10)
[2023-12-22 05:18] LABS: Anion Gap 11 mmol/L (10-20); BUN (Urea Nitrogen) 11 mg/dL (8.4-25.7); Calc. Creatinine Clearance 128 mL/min (70-130); Calcium 8.8 mg/dL (7.8-10.44); Carbon Dioxide 33 mmol/L (23-31); Chloride 99 mmol/L (98-107); Estimated GFR 80; Glucose 112 mg/dL (83-110); Potassium 3.2 mmol/L (3.5-5.1); Sodium 140 mmol/L (136-145)
[2023-12-22] MEDS: Spironolactone 25 MG TAB PO SCH (08:02)
[2023-12-22] MEDS ORDERED: Spironolactone 25 MG TAB PO SCH (09:31)
[2023-12-22] MEDS: Potassium Chloride 20 MEQ TAB PO SCH (10:13)
[2023-12-22] MEDS: Ipratropium/Albuterol 3 ML NEB NEB PRN (11:36)
[2023-12-23 04:49] LABS: #Basophils Less than 0.03 10x3/uL (0.0-0.2); %Basophils 0.4 % (0.0-1.0); %Eosinophils 1.6 % (0.0-10.0); %Lymphocytes 30.8 % (21.0-51.0); %Monocytes 12.1 % (0.0-10.0); %Neutrophils 54.9 % (42.0-75.0); Hematocrit 26.4 % (42.0-52.0); Hemoglobin 8.6 g/dL (14.0-18.0); Mean Corpuscular HGB CONC 32.6 g/dL (32.0-36.0); Mean Corpuscular Volume 79.8 fL (78.0-98.0); Mean Platelet Volume 11.4 fL (7.4-10.4); Platelet Count 253 10x3/uL (130-400); Red Blood Cell (RBC) Count 3.31 mill/uL (4.70-6.10)
[2023-12-23 05:00] LABS: Anion Gap 10 mmol/L (10-20); BUN (Urea Nitrogen) 12 mg/dL (8.4-25.7); Calc. Creatinine Clearance 127 mL/min (70-130); Calcium 9.1 mg/dL (7.8-10.44); Carbon Dioxide 32 mmol/L (23-31); Chloride 100 mmol/L (98-107); Estimated GFR 80; Glucose 92 mg/dL (83-110); Potassium 3.4 mmol/L (3.5-5.1); Sodium 139 mmol/L (136-145)
[2023-12-23] MEDS: Carvedilol 25 MG TAB PO SCH (09:00)
[2023-12-23] MEDS: Spironolactone 25 MG TAB PO SCH (09:08)
[2023-12-23] MEDS: Potassium Chloride 20 MEQ TAB PO SCH (09:08)
[2023-12-23 12:06] VITALS: TEMP 98.4
[2023-12-23] MEDS: Furosemide 40 MG TAB PO SCH (14:20)
[2023-12-23 14:21] VITALS: BP 138/93
== END 2023-12-23 15:30 | disposition home or self-care (01) | DRG 291 ==
LOC: ERS 09:00 → 2SW 13:09 → OBSVTOIN 12-21 09:00 → OBS 12-21 09:52
PROVIDERS: ADMIT Internal Medicine; ATTEND Internal Medicine
DX: I11.0 Hypertensive heart disease with heart failure (principal); I50.33 Acute on chronic diastolic (congestive) heart failure; I24.89 Other forms of acute ischemic heart disease; E87.6 Hypokalemia; D63.8 Anemia in other chronic diseases classified elsewhere; E11.9 Type 2 diabetes mellitus without complications; G47.33 Obstructive sleep apnea (adult) (pediatric); I25.10 Atherosclerotic heart disease of native coronary artery without angina pectoris; E78.5 Hyperlipidemia, unspecified; F41.9 Anxiety disorder, unspecified; Z96.653 Presence of artificial knee joint, bilateral; J44.9 Chronic obstructive pulmonary disease, unspecified; D50.9 Iron deficiency anemia, unspecified; Z91.041 Radiographic dye allergy status; Z91.013 Allergy to seafood; Z88.8 Allergy status to other drugs, medicaments and biological substances; Z88.2 Allergy status to sulfonamides; Z99.89 Dependence on other enabling machines and devices; Z90.49 Acquired absence of other specified parts of digestive tract
CPT/HCPCS: 36415; 36416; 71045; 71275; 74177; 80048; 80053; 81001; 82607; 82728; 83540; 83550; 83735; 83880; 84484; 85025; 86850; 86900; 86901; 93005; 93306; 93798; 94640; 96372; 96374; 96375; 96376; G0378; J1200; J1650; J1815; J1940; J2916; J2919; J3490; J7050; J7620; Q9967

== ENCOUNTER 2023-12-29 17:49 | Emergency (ER) | payer OTHER ==
[2023-12-29 19:05] LABS: #Basophils Less than 0.03 10x3/uL (0.0-0.2); %Basophils 0.3 % (0.0-1.0); %Eosinophils 0.6 % (0.0-10.0); %Lymphocytes 22.6 % (21.0-51.0); %Monocytes 8.4 % (0.0-10.0); %Neutrophils 67.8 % (42.0-75.0); Hematocrit 30.3 % (42.0-52.0); Hemoglobin 9.8 g/dL (14.0-18.0); Mean Corpuscular HGB CONC 32.3 g/dL (32.0-36.0); Mean Corpuscular Hemoglobin 26.7 pg (27.0-31.0); Mean Corpuscular Volume 82.6 fL (78.0-98.0); Mean Platelet Volume 11.1 fL (7.4-10.4); Platelet Count 240 10x3/uL (130-400); Red Blood Cell (RBC) Count 3.67 mill/uL (4.70-6.10)
[2023-12-29 19:27] LABS: ALT (SGPT) 17 U/L (8-55); AST (SGOT) 11 U/L (5-34); Albumin 3.5 g/dL (3.4-4.8); Alkaline Phosphatase 77 U/L (40-110); Anion Gap 16 mmol/L (10-20); BUN (Urea Nitrogen) 12 mg/dL (8.4-25.7); Bilirubin, Total 0.9 mg/dL (0.2-1.2); Calc. Creatinine Clearance 0 mL/min (70-130); Calcium 8.8 mg/dL (7.8-10.44); Carbon Dioxide 26 mmol/L (23-31); Chloride 100 mmol/L (98-107); Estimated GFR 89; Globulin 4.5 g/dL (2.4-3.5); Glucose 65 mg/dL (83-110); Potassium 3.8 mmol/L (3.5-5.1); Sodium 138 mmol/L (136-145)
[2023-12-29 20:32] LABS: Bacteria/HPF None Seen HPF (None Seen); Bilirubin Negative (Negative); Blood, Urine Negative (Negative); CAUTI Indications for Culture Alt mental st,lethar; Clarity Clear (Clear); Glucose, Urine (Dipstick) Normal (Negative); Ketone, Urine Negative (Negative); Leukocyte Negative Leu/uL (Negative); Nitrite Negative (Negative); Protein, Urine (Dipstick) Negative (Neg-Trace); RBC/HPF 0-3 HPF (0-3); Specific Gravity, Urine 1.002 (1.002-1.036); Squamous Epithelial None Seen HPF (0-3); Urobilinogen Normal mg/dL (Less than 2); WBC/HPF 0-3 HPF (0-3); pH, Urine 5.5 (5.0-9.0)
[2023-12-29 20:33] LABS: Sperm/HPF Rare HPF (None Seen)
[2023-12-29 20:35] LABS: Urine Culture Reflex No No
[2023-12-29] MEDS ORDERED: Furosemide 40 MG TAB ONE (21:34)
== END 2023-12-29 22:30 | disposition home or self-care (01) ==
LOC: ERS 17:49
DX: I11.0 Hypertensive heart disease with heart failure (principal); I50.9 Heart failure, unspecified; R53.83 Other fatigue; E11.9 Type 2 diabetes mellitus without complications; E78.5 Hyperlipidemia, unspecified; Z79.899 Other long term (current) drug therapy
CPT/HCPCS: 36415; 70450; 71045; 80053; 81001; 83880; 84484; 85025; 93005

== ENCOUNTER 2024-01-28 08:50 | Outpatient (CLI) | payer OTHER | END 2024-01-28 08:51 | disposition home or self-care (01) | LOC: RAD 08:50 | PROVIDERS: ATTEND Internal Medicine Critical Care Medicine | DX: R06.00 Dyspnea, unspecified (principal) | CPT/HCPCS: 71046 ==

== ENCOUNTER 2024-03-15 10:15 | Outpatient (CLI) | payer OTHER | END 2024-03-15 10:16 | disposition home or self-care (01) | LOC: RAD 10:15 | PROVIDERS: ATTEND Internal Medicine Critical Care Medicine | DX: R06.00 Dyspnea, unspecified (principal) | CPT/HCPCS: 71046 ==